=== PATIENT | male | born 1935 | race Caucasian/White ===

== ENCOUNTER 2019-05-11 11:04 | Outpatient (RCR) | payer MEDICARE, MEDICAID, SELFPAY ==
[2019-05-11 11:48] LABS: Basophils # 0.1 10^3/uL (0.0-0.1); Basophils % 0.8 %; Eosinophils # 0.4 10^3/uL (0.0-0.8); Eosinophils % 4.9 %; Hematocrit 43.6 % (42.0-52.0); Hemoglobin 14.4 g/dL (11.7-16.6); Lymphocytes # 1.4 10^3/uL (0.8-4.8); Lymphocytes % 17.8 %; Mean Corpuscular Hemoglobin 30.3 pg (28.0-34.0); Mean Corpuscular Volume 91.8 fL (80-94); Mean Platelet Volume 9.7 fL (7.4-10.4); Monocytes # 0.7 10^3/uL (0.2-0.9); Monocytes % 8.6 %; Neutrophils # 5.2 10^3/uL (1.8-7.7); Neutrophils % 67.6 %; Nucleated Red Blood Cells % 0 %; Platelet Count 215 10^3/cmm (130-400); Red Blood Count 4.75 10^6/uL (4.1-5.3); Red Cell Distribution Width 14.6 % (12.1-15.1); White Blood Count 7.7 10^3/uL (4.0-10.0)
[2019-05-11 12:00] LABS: Anion Gap 14.8 (5-19); Blood Urea Nitrogen 14 mg/dL (8-23); Calcium 9.4 mg/Dl (8.8-10.2); Carbon Dioxide 26 mmol/L (22-29); Chloride 104 mmol/L (98-107); Glucose 121 mg/dL (74-106); Potassium 4.8 mmol/L (3.5-5.1); Sodium 140 mmol/L (136-145)
== END 2019-05-25 23:59 | disposition home or self-care (01) ==
LOC: LAB 11:04
PROVIDERS: Family Provider Family Medicine; PCP Family Medicine; Visit Provider Family Medicine
DX: D50.9 Iron deficiency anemia, unspecified (principal); J44.9 Chronic obstructive pulmonary disease, unspecified; E78.41 Elevated Lipoprotein(a); I25.10 Atherosclerotic heart disease of native coronary artery without angina pectoris; D62 Acute posthemorrhagic anemia
CPT/HCPCS: 80048; 85025

== ENCOUNTER → 2019-10-04 11:55 | Outpatient (BNVA) | payer MEDICARE, MEDICAID, SELFPAY | PROVIDERS: PCP Family Medicine; Visit Provider Internal Medicine Cardiovascular Disease | DX: I73.9 Peripheral vascular disease, unspecified (principal) | CPT/HCPCS: 80048; 85025; 87635 ==

== ENCOUNTER 2019-10-08 07:30 | Observation (INO) | payer MEDICARE, MEDICAID, SELFPAY ==
[2019-10-08] VITALS (18 sets, daily range): BP systolic 135–171; BP diastolic 61–79; PULSE 52–90; RESP 10–18; TEMP 36.6–37.1; O2SAT 92–96; BMI 24.7
--- NOTE | 2019-10-08 07:00 | XACV_ITS ---
Ht: 168 cm Wt: 69 kg BSA: 1.81 m2 Any Known Allergies: Other Gender: Male : 1935 Exam Type: Invasive Peripheral Vascular Procedure(s): Procedure Description: Peripheral Cath Diagnostic Procedure Procedure Description: Lower extremities' angiography Exam Priority: Routine Conclusions Peripheral Procedure Description: Lifestyle limiting claudication of the both legs #1 Abdominal aorta: Luminal irregularities #2 Right and left renal arteries not well visualized #3 Right common iliac artery has luminal irregularities #4 Left common iliac artery has luminal irregularities #5 Left and right internal iliac artery has luminal irregularity #6 Left common femoral artery has luminal irregularity#7 Left and right profunda femoral artery has luminal irregularity#8 Proximal left SFA has patent previously placed stent with proximal 50% instent restenosis#9 Right proximal to mid SFA has diffuse severe disease with scant and slow blood flow,Right popliteal, tibioperoneal trunk has luminal irregularities. #10 Left tibioperoneal trunk has luminal irregularities, left anterior tibial artery has chronic occlusion of the proximal segment while two-vessel runoff with posterior tibial and peroneal artery has luminal irregularities. #11 Right tibioperoneal trunk with three-vessel runoff noted in the right leg including anterior posterior tibial and peroneal artery which showed luminal irregularities. Recommendations Patient will brought in back for right SFA intervention through left common femoral artery approach for lifestyle limiting claudication. For left SFA at this point no intervention required continue medical treatment. 1-Return to inpatient for close monitoring and routine cath care 2-Risk factor modification for secondary prevention 4-Statin and aspirin 81 mg life--long, if tolerated 5-Continue optimal medical management. 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 Sepulveda in four weeks and your primary care in 10 days. Access Site Site: Right Femoral artery Sheath Size: 6 Fr Hemost... Method: Manual Compression Hemost... Success: Successful Procedure Details Findings Procedure Consent Obtained. Pre-Procedure Time Out. Identified patient by full name and date of as verbalized by the patient/guarantor. Does the consent match the physician's order: Yes. Accurate & Complete Informed Consent: Yes. Inpatient/Outpatient History & Physical on Chart: Yes. If H&P is completed, is and addenduem needed: N/A; If yes, is the addendum complete: N/A. Visualize and Verify Site with Patient/Guarantor: N/A. Relevant Radiology Images available: Yes. Pre-op teaching completed and patient verbalized understanding. The risks, benefits, and alternatives of sedation and/or procedure were discussed by physician. The patient agrees to continue. Procedure started. Current diagnosis: PAD. PERRLA. Strong, equal hand beef trimmer bilaterally. Lungs clear x 5 lobes. IV Site on Arrival: 20 gauge in the right forearm. IV Fluids: 0.9% NaCl at KVO. 0 mL infused prior to tanbark laborer. Pre Procedural Pulses: bilateral dorsalis pedis was Doppled. Pre Procedural Pulses: left posterior tibial was 2+. Pre Procedural Pulses: right posterior tibial was Doppled. Pre Procedural Pulses: bilateral radial was 3+. Oxygen started at 2liters/min via nasal canula. bilateral groins was prepped with chloroprep then draped in the usual sterile fashion. Physician notified. Equipment: 6F - Femoral. Cardiac Cath Pack. ACIST Manifold Kit Model BT 2000. Heparinized Saline (2 units/mL), 1000 mL bag. Kit, Micropuncture. Baseline sample Acquired. HR: 59 BPM. Physician arrived. Physician scrubbed in. Time out performed with cath team. Lidocaine 1% infiltrated to the right groin. Arterial access obtained with micropuncture set. hand injection through dilator. A 5FrFr UF catheter in over wire. Abdominal aortogram performed in AP @ 10 mL/sec for a total of 30 mL. inserting the glidewire removing the UF catheter. inserting the RIM. wire out. left leg runoff 10ml/sec for a total of 30ml x2. catheter out. right leg runoff 10ml/sec for a total of 30ml. A Manual Compression was successful obtaining hemostatsis at the Right Femoral artery insertion site. Sheath(s) removed and manual pressure held until hemostasis was achieved. Sterile 4x4 and Op-site applied to the puncture site. No oozing or hematoma noted. Post sheath removal instructions were given and the patient verbalized understanding. Post Procedure: Pulses reassessed and unchanged. PERRLA. Strong, equal hand beef trimmer bilaterally. No VTE prophylaxis required. Medication's Wasted: Lidocaine 1% = 10 mL. Medication's Wasted: Heparin = 4000 units. Total IV fluids: 56.2 mL. Fluoro: 2:09. Contrast type used: Visipaque 320 mgI/mL, 500 mL bottle. [id number]. Complications: none. Estimated blood loss: 5mL-10mL. Procedure completed. Patient transferred by bed to 1st floor. Post-op diagnosis: patent stent on left severe pad on right sfa. Vital chart was stopped. Procedure Medications Start: 9:34 AM Stop: 9:34 AM Medication: Versed Amount: 1 mg Route: I.V. Start: 9:34 AM Stop: 9:34 AM Medication: Fentanyl Amount: 50 mcg Route: I.V. Start: 9:57 AM Stop: 9:57 AM Medication: Versed Amount: 1 mg Route: I.V. Start: 9:57 AM Stop: 9:57 AM Medication: Fentanyl Amount: 50 mcg Route: I.V. I, the attending physician, have reviewed and verified all procedure medications. Yes, all medications given per verbal order History/Risk Factors Hypertension: Yes Dyslipidemia: No Peripheral Arterial Disease (PAD): Yes Myocardial Infarction (CT): No Obesity: No Renal Disease: No Tobacco Use: Current/Recent(w/in 1 year) Prior Interventions PCI: No CABG: No Valve Surgery: No Report Signatures Finalized by:Emilia Sepulveda MD on 10/14/2019 3:16:08 PM
[2019-10-08] MEDS: diphenhydrAMINE 50 mg Capsule PO (07:34)
--- NOTE | 2019-10-08 08:31 | PC.RESP ---
Smoking Cessation packet sent to patient with a schedule of classes.
--- NOTE | 2019-10-08 09:24 | W.PM.OPSUD ---
Surgery/Procedure H&P Update DATE OF PROCEDURE: October 08, 2019 DATE H&P PERFORMED: 10/08/19 H&P UPDATE INFORMATION: I have examined patient prior to procedure PREOP DIAGNOSIS: Lifestyle limiting claudication, failed conservative management, failed cilostazol PLANNED PROCEDURE: Operation Date: 10/08/19 08:30 Proposed Procedures p Peripheral Diagnostic(Not Applicable) - Emilia Sepulveda MD PATIENT REASSESSED PRIOR TO SEDATION, WITH NO CHANGE NOTED: Yes PHYSICAL EXAM: alert, oriented x 3, clear to auscultation bilaterally and regular rate & rhythm OTHER PERTINENT EXAM FINDINGS: Patient has underlying dementia but he is oriented of time and space. He is oriented of symptoms. AIRWAY EVAL/ANESTHESIA PLAN: normal airway, ASA II, Risks, benefits & alternatives of sedation and/or procedure discussed and Patient agrees to continue as planned
--- NOTE | 2019-10-08 09:26 | P.HP_ITS ---
Providers/Chief Complaint Admitting Physician: Emilia Sepulveda MD Primary Care Provider: Sea Baxter Chief Complaint: pvd History of Present Illness Modesto Calixto is a 84 year old male past medical history significant for severe peripheral vascular disease, COPD, history of balloon angioplasty and stent placement in the left SFA and history of balloon angioplasty of the right SFA in 2018 for the last few months has been struggling with lifestyle limiting claudication as he cannot walk more than 50 yards he has to sit down to get over the tightness and the pain. Cilostazol was tried and patient was encouraged to walk more however despite of optimization of medicine he is not able to do much. It is the reason today he is brought in for peripheral angiogram. According to the patient it does not matter both legs hurt the same. We will therefore proceed from the right common femoral for the angiogram and most likely we will proceed with intervention of the left SFA or iliac if needed. Further plan will be advised as per progress the patient. Patient has been discussed in detail risk benefit and alternative for the procedure. He understand the risk of drug-coated balloon and warning regarding drug-coated balloon from FDA for increased mortality in that subgroup. If needed he would like to proceed with it. Medications/Allergies Home Medications Medication Instructions Recorded Confirmed Last Taken Type amlodipine 2.5 mg tablet 2.5 mg PO DAILY 08/01/19 10/08/19 10/08/19 06:00 His tory cilostazol 50 mg tablet 50 mg PO BID 90 Days #180 tab 08/01/19 10/08/19 10/08/19 06:00 Rx clopidogrel 75 mg tablet 75 mg PO BEDTIME 08/01/19 10/08/19 10/07/19 19:00 History donepezil 10 mg tablet 5 mg PO BEDTIME 08/01/19 10/08/19 10/07/19 20:00 History ferrous sulfate 325 mg (65 mg 325 mg PO .every other day tab 08/01/19 10/08/19 10/07/19 06:00 History iron) tablet fluticasone furoate 100 1 inh INHALATION BEDTIME 08/01/19 10/08/19 10/07/19 19:00 History mcg-vilanterol 25 mcg/dose inhalation powder gabapentin 400 mg capsule 400 mg PO TID 08/01/19 10/08/19 10/08/19 06:00 History pantoprazole 40 mg tablet,delayed 40 mg PO DAILY 08/01/19 10/08/19 10/08/19 06:00 History release psyllium husk 3.4 gram/5.4 gram 1 tbsp PO DAILY 08/01/19 10/05/19 Unknown History oral powder rosuvastatin 20 mg tablet 20 mg PO BEDTIME 08/01/19 10/08/19 10/07/19 19:00 History sertraline 50 mg tablet 50 mg PO DAILY 08/01/19 10/08/19 10/08/19 06:00 History bisacodyl 10 mg ME DAILY PRN 10/05/19 10/05/19 Unknown History famotidine 20 mg PO BID PRN 10/05/19 10/05/19 Unknown History ipratropium bromide 2 spray INTRANASAL DAILY PRN 10/05/19 10/05/19 Unknown History lactulose 15 ml PO DAILY PRN 10/05/19 10/05/19 Unknown History tizanidine 2 mg PO BID PRN 10/05/19 10/05/19 Unknown History tramadol 50 mg PO Q8H PRN 10/05/19 10/05/19 Unknown History acetaminophen 500 mg PO Q6H PRN 10/08/19 10/08/19 Unknown History fluticasone furoate-vilanterol 1 inh INHALATION DAILY 10/08/19 10/08/19 10/08/19 06:00 History [Breo Ellipta] magnesium hydroxide [Milk of 400 mg PO DAILY PRN 10/08/19 10/08/19 Unknown History Magnesia] memantine [Namenda] 10 mg PO BID 10/08/19 10/08/19 10/08/19 06:00 History mirtazapine [Remeron] 15 mg PO BEDTIME 10/08/19 10/08/19 10/07/19 19:00 History polyethylene glycol 3350 17 g PO DAILY PRN 10/08/19 10/08/19 Unknown History Allergies Allergy/AdvReac Type Severity Reaction Status Date / Time amoxicillin Allergy Unknown Unknown Verified 10/08/19 07:58 clavulanic acid Allergy Unknown Unknown Verified 10/08/19 07:58 [From Augmentin] sulfamethoxazole Allergy Unknown Unknown Verified 10/08/19 07:58 [From Bactrim] trimethoprim Allergy Unknown Unknown Verified 10/08/19 07:58 PFSH Acute PFSH: Medical History (Updated 10/08/19 @ 09:29 by Emilia Sepulveda MD) ASHD (arteriosclerotic heart disease) Claudication in peripheral vascular disease COPD (chronic obstructive pulmonary disease) HTN (hypertension) Family History Other Diabetes Heart disease Stroke Social History Smoking and tobacco status: current every day smoker cigarettes Vitals/I&O/Wt Last Vital Signs Temp 97.9 F 10/08/19 07:52 Pulse 76 10/08/19 07:52 Resp 18 10/08/19 07:52 BP 140/77 10/08/19 07:52 Pulse Ox 96 10/08/19 07:52 Weight last 48 hrs Weight 153 lb Physical Exam Narrative: EXAM NARRATIVE: GENERAL: Patient is alert, awake and oriented x3. NECK: No jugular vein distension. HEENT: No cyanosis. No icterus. No pallor. HEART: Regular S1 and S2. No murmur, rub or gallop. LUNGS: Clear to auscultate bilaterally. ABDOMEN: Soft, nontender and nondistended. Positive bowel sounds. No guarding, rebound or tenderness. CENTRAL NERVOUS SYSTEM: Grossly nonfocal. EXTREMITIES: Lower extremities pelvis looking normal temperature though Const: COMMON NORMALS: alert Resp: COMMON NORMALS: clear to auscultation bilaterally AUSCULTATION: clear to auscultation bilaterally Neuro: SENSORIUM/ORIENTATION: Yes alert A&P Assessment and plan (1) Claudication in peripheral vascular disease: Patient has lifestyle limiting claudication he has failed conservative management including walking and cilostazol. It is the reason he has brought in today for peripheral angiogram. He has history of prior intervention on both legs. Since he does not have a preference and states that his both legs are worse we will proceed from right groin approach to perform peripheral angiogram and intervention of left leg if indicated. Status: Acute (2) ASHD (arteriosclerotic heart disease): Stable denies any complaint. Status: Acute (3) HTN (hypertension): Well-controlled continue medicine Status: Acute Qualifiers: Hypertension type: essential hypertension Qualified Code(s): I10 - Essential (primary) hypertension Attestations Medical Necessity Statement*: I am expecting his stay not to cross more than 1 midnight. 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
[2019-10-08] MEDS: pantoprazole DR 40 mg Tablet PO (11:56)
[2019-10-08] MEDS: ferrous sulfate EC 325 mg Tablet PO (11:56)
[2019-10-08] MEDS: gabapentin 400 mg Capsule PO (15:39)
--- NOTE | 2019-10-08 17:28 | PM.DCS ---
Discharge Providers Date of Admission: 10/08/19 07:30 Date of Discharge: October 08, 2019 Attending Provider at Admission: Emilia Sepulveda MD Attending Provider at Discharge: Emilia Sepulveda MD Primary Care Provider: Sea Baxter Diagnoses at Discharge Discharge Diagnosis (1) Claudication in peripheral vascular disease: Status: Acute (2) ASHD (arteriosclerotic heart disease): Status: Acute (3) HTN (hypertension): Status: Acute Qualifiers: Hypertension type: essential hypertension Qualified Code(s): I10 - Essential (primary) hypertension Reason for Visit Reason for Visit: pvd Hospital Course Hospital Course: Patient underwent peripheral angiogram for lifestyle limiting claudication. He has history of prior stents in the left SFA while right SFA had angioplasty without stent placement in the past. Today peripheral angiogram revealed patent prior left SFA stents without any significant stenosis in the left leg arterial system however right SFA appeared to be chronically occluded requires intervention. He is completed bedrest and is being discharged home. Right groin wound looks good. Patient will be brought back for right SFA intervention in 1 week. Physical Exam Narrative: EXAM NARRATIVE: GENERAL: Patient is alert, awake and oriented x3. Patient has underlying dementia. NECK: No jugular vein distension. HEENT: No cyanosis. No icterus. No pallor. HEART: Regular S1 and S2. No murmur, rub or gallop. LUNGS: Clear to auscultate bilaterally. ABDOMEN: Soft, nontender and nondistended. Positive bowel sounds. No guarding, rebound or tenderness. CENTRAL NERVOUS SYSTEM: Grossly nonfocal. EXTREMITIES: Lower extremities without edema, right foot nonpalpable anterior posterior tibial pulse. Discharge Data Data Completed and Pending: Pending at discharge Category Date Time Status SAFETY ATTENDANT request for service Routin e Exams 10/08/19 07:00 Taken Vitals: Last Vital Signs Temp 98.7 F 10/08/19 12:00 Pulse 90 10/08/19 17:00 Resp 14 10/08/19 17:00 BP 171/79 10/08/19 17:00 Pulse Ox 93 10/08/19 16:00 Discharge Plan Discharge Patient Disposition: Home, Self-Care Condition: Stable Prescriptions: Continued ferrous sulfate 325 mg (65 mg iron) tablet 325 mg PO .every other day RF: 0 clopidogrel 75 mg tablet 75 mg PO BEDTIME RF: 0 sertraline 50 mg tablet 50 mg PO DAILY RF: 0 pantoprazole 40 mg tablet,delayed release (DR/EC) 40 mg PO DAILY RF: 0 amlodipine 2.5 mg tablet 2.5 mg PO DAILY RF: 0 rosuvastatin 20 mg tablet 20 mg PO BEDTIME RF: 0 Metamucil 3.4 gram/5.4 gram powder 1 tbsp PO DAILY RF: 0 gabapentin 400 mg capsule 400 mg PO TID RF: 0 Breo Ellipta 100-25 mcg/dose blister with device 1 inh INHALATION BEDTIME RF: 0 donepezil 10 mg tablet 5 mg PO BEDTIME RF: 0 cilostazol 50 mg tablet 50 mg PO BID 90 Days Qty: 180 RF: 3 tizanidine 2 mg Tablet 2 mg PO BID PRN (Reason: Spasms) RF: 0 tramadol 50 mg Tablet 50 mg PO Q8H PRN (Reason: Pain) RF: 0 famotidine 20 mg Tablet 20 mg PO BID PRN (Reason: Dyspepsia) RF: 0 bisacodyl 10 mg Suppository 10 mg MS DAILY PRN (Reason: Constipation) RF: 0 ipratropium bromide 0.03 % [place],Non-Aerosol 2 spray INTRANASAL DAILY PRN (Reason: Shortness Of Breath) RF: 0 lactulose 10 gram/15 mL Solution 15 ml PO DAILY PRN (Reason: Constipation) RF: 0 polyethylene glycol 3350 17 gram Powder In Packet 17 g PO DAILY PRN (Reason: Constipation) RF: 0 Milk of Magnesia 400 mg/5 mL Suspension 400 mg PO DAILY PRN (Reason: CONSTIPATION) RF: 0 Remeron 15 mg Tablet 15 mg PO BEDTIME RF: 0 acetaminophen 500 mg Capsule 500 mg PO Q6H PRN (Reason: Pain) RF: 0 Namenda 10 mg Tablet 10 mg PO BID RF: 0 Breo Ellipta 100-25 mcg/dose Blister With Device 1 inh INHALATION DAILY RF: 0 Discharge Orders: Discharge Order (Routine); Ordered 10/08/19 Ordered By: Emilia Sepulveda Referrals: Emilia Sepulveda MD [Physician] - ([facility] [place] [facility] will be calling to set up a cardiology followup. If you do not hear from them by Tomorrow afternoon, please call them at [phone]) Discharge Diet: Cardiac Discharge Activity: Increase activity as tolerated Patient Instructions: Peripheral Vascular Angioplasty (DC) Activity Restrictions/Additional Instructions: Patient underwent peripheral angiogram today without any intervention. Left lower extremity vessels did not show any blockage. He will be brought back for right leg which had severe peripheral vascular disease as right SFA appeared to be chronically 99% blocked in mid to distal segment which reconstitute at the distal end. Please schedule patient for peripheral angiogram for right leg in 1 week. 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
== END 2019-10-08 17:40 | disposition home or self-care (01) ==
LOC: CSU 07:31
PROVIDERS: Admitting Provider Internal Medicine Cardiovascular Disease; PCP Family Medicine; Visit Provider Internal Medicine Cardiovascular Disease
DX: I73.9 Peripheral vascular disease, unspecified (principal); I25.10 Atherosclerotic heart disease of native coronary artery without angina pectoris; I10 Essential (primary) hypertension; F17.210 Nicotine dependence, cigarettes, uncomplicated; Z82.49 Family history of ischemic heart disease and other diseases of the circulatory system; Z83.3 Family history of diabetes mellitus
CPT/HCPCS: 12345; 36415; 75625; 75716; C1769; C1887; C1894; G0378; J1644; J2001; J2250; J3010; J7030; Q0163; Q9967

== ENCOUNTER → 2019-11-05 11:50 | Outpatient (BNVA) | payer MEDICARE, MEDICAID, SELFPAY | PROVIDERS: PCP Family Medicine; Visit Provider Internal Medicine Cardiovascular Disease | DX: I73.9 Peripheral vascular disease, unspecified (principal) | CPT/HCPCS: 80048; 85025; 87635 ==

== ENCOUNTER 2019-11-08 10:33 | Observation (INO) | payer MEDICARE, MEDICAID, SELFPAY ==
[2019-11-07 10:57] VITALS: BMI 24.7
[2019-11-08] VITALS (46 sets, daily range): BP systolic 98–149; BP diastolic 52–84; PULSE 52–90; RESP 12–23; TEMP 36.2–36.6; O2SAT 89–98
--- NOTE | 2019-11-08 08:15 | SUR.PREOP ---
H/P Dr Sepulveda notified of h/p being ood. States he will be in to complete it! Patient is CPRU Pending update.
--- NOTE | 2019-11-08 08:16 | XACV_ITS ---
Wt: 69 kg BSA: 1.81 m2 Any Known Allergies: Other Gender: Male : 1935 Exam Type: Invasive Peripheral Vascular Procedure(s): Procedure Description: Peripheral Cath Diagnostic Procedure Procedure Description: Peripheral vascular Intervention Procedure Description: PV Balloon Procedure Description: PV Atherectomy Exam Priority: Routine Lower Extremity Interventional Findings After crossing with the Glidewire using seeker catheter Viper wire was exchanged. 2.0 bur of CSI atherectomy was used to perform atherectomy throughout the right SFA from proximal to distal segment. Multiple balloon angioplasty using [id number] followed by drug-coated balloon was performed. Please see the inventory for details of balloon and inflation time. Excellent angiographic result in the right SFA was achieved. Good three-vessel runoff was noted below the right knee all the way to the foot. Conclusions Peripheral Procedure Description: Life style limiting claudication, Zeus grade V :Lloyd stage . 1-Left common femoral artery was used to approach the right superficial femoral which was chronically totally occluded from proximal to distal segment reconstitute at the proximal segment of the popliteal artery through collaterals.2-right popliteal artery has luminal irregularity, right tibioperoneal trunk has luminal irregularity right anterior tibial artery has moderate lesion right posterior tibial artery has luminal irregularity right peroneal artery has luminal irregularity with three-vessel runoff noted. Recommendations 1-Return to inpatient for close monitoring and routine cath care 2-Risk factor modification for secondary prevention 3-Statin and aspirin 81 mg life--long, if tolerated 4-Patient was pre-loaded with 600 mg of Plavix, continue Plavix 75mg p.o. daily for three months 5-Continue optimal medical management 6-Follow up with Dr. Sepulveda in four weeks and your primary care in 10 days. Access Site Site: Left Femoral artery Sheath Size: 6 Fr Hemost... Method: Suture Hemost... Success: Successful Site: Left Femoral artery Sheath Size: 6 Fr Hemost... Success: Unsuccessful Procedure Details Findings Procedure Consent Obtained. Admit Source: Out Patient. Pre-Procedure Time Out. Identified patient by full name and date of as verbalized by the patient/guarantor. Does the consent match the physician's order: Yes. Accurate & Complete Informed Consent: Yes. Inpatient/Outpatient History & Physical on Chart: Yes. If H&P is completed, is and addenduem needed: Yes; If yes, is the addendum complete: Yes. Visualize and Verify Site with Patient/Guarantor: N/A. Relevant Radiology Images available: Yes. Pre-op teaching completed and patient verbalized understanding. The risks, benefits, and alternatives of sedation and/or procedure were discussed by physician. The patient agrees to continue. Procedure started. Correct patient, site and procedure confirmed by cath team. PERRLA. Strong, equal hand delivery rep bilaterally. Lungs clear x 5 lobes. IV Site on Arrival: 18 gauge in the right anticubital. IV Fluids: 0.9% NaCl at KVO. 0 mL infused prior to lab intern. Pre Procedural Pulses: bilateral dorsalis pedis was Absent. Pre Procedural Pulses: right posterior tibial was Doppled. Pre Procedural Pulses: left posterior tibial was 3+. Pre Procedural Pulses: bilateral radial was 2+. Oxygen started at 2liters/min via nasal canula. bilateral groins was prepped with chloroprep then draped in the usual sterile fashion. Physician notified. Baseline sample Acquired. HR: 70 BPM. Physician arrived. Physician scrubbed in. Time out performed with cath team. Tried calling son, no answer. Lidocaine 1% infiltrated to the left groin. Arterial access obtained with micropuncture set. A 5FrFr RIM catheter in over wire. Catheter out. Sheath upsized to a 6 Fr. right leg runoff 10mL/sec for a total of 20mL. Trailblazer catheter inserted over the wire. wire out. hand injection performed. viper wire inserted. seeker out over the Viper wire. loading monica. Athroectomy performed Right SFA. advancing monica. device out. Trailblazer catheter inserted over the viper wire. viper wire out. Side port of sheath attached to Normal Saline flush at KVO to maintain patency. son updated. Inflation number : 1 A AB [place] 35 WARPING MILL OPERATOR Catheter [id number] was prepped and advanced across the Mid SFA , then inflated to 10 MYLES for 2:04 seconds. Inflation number: 1 The AB [place] 35 WARPING MILL OPERATOR Catheter [id number] was reinflated across the Proximal Superficial Femoral, Left, to 10 MYLES for 2:02 seconds. Balloon out. Inflation number : 1 A [place] 035 [id number] was prepped and advanced across the Mid Superficial Femoral, Left , then inflated to 10 MYLES for 1:04 seconds. Inflation number: 2 The [place] 035 was reinflated across the Mid Superficial Femoral, Left, to 10 MYLES for 1:07 seconds. Inflation number: 3 The [place] 035 was reinflated across the Mid Superficial Femoral, Left, to 12 MYLES for 2:03 seconds. checking results. right leg runoff performed. 10mL/sec for a total of 20mL. exchanging sheaths back. Sheath(s) sutured into position with 2-0 silk and sterile 4x4's and Op-site applied over the site. No oozing or signs and symptoms of hematoma noted. Arterial sheath flushed and connected to tranducer and pressure bag with heparinized saline. Post Procedure: Pulses reassessed and unchanged. PERRLA. Strong, equal hand delivery rep bilaterally. No VTE prophylaxis required. Medication's Wasted: Verapamil = 4 mg. Medication's Wasted: Nitro = 49.4 mg. Medication's Wasted: Other = fentanyl 25 mg. Medication's Wasted: Lidocaine 1% = 10 mL. Total IV fluids: 200 mL. Contrast type used: Visipaque 320 mgI/mL, 500 mL bottle. Contrast Material : Visipaque 67 ml. Post-op diagnosis: severe SCI atherectomy/WARPING MILL OPERATOR. Complications: none. Estimated blood loss: 5mL-10mL. Procedure completed. Patient transferred by bed to 1st floor. A Suture was successful obtaining hemostatsis at the Left Femoral artery insertion site. Vital chart was stopped. Procedure Medications Start: 9:08 AM Stop: 9:08 AM Medication: Versed Amount: 1 mg Route: I.V. Start: 9:09 AM Stop: 9:09 AM Medication: Fentanyl Amount: 50 mcg Route: I.V. Start: 9:25 AM Stop: 9:25 AM Medication: Versed Amount: 1 mg Route: I.V. Start: 9:25 AM Stop: 9:25 AM Medication: Heparin Amount: 4000 units Route: I.V. Start: 9:33 AM Stop: 9:33 AM Medication: Fentanyl Amount: 25 mcg Route: I.V. I, the attending physician, have reviewed and verified all procedure medications. Yes, all medications given per verbal order History/Risk Factors Hypertension: Yes Dyslipidemia: No Peripheral Arterial Disease (PAD): Yes Myocardial Infarction (NE): No Obesity: No Renal Disease: No Tobacco Use: Current/Recent(w/in 1 year) Prior Interventions PCI: No CABG: No Valve Surgery: No Report Signatures Finalized by:Emilia Sepulveda MD on 11/22/2019 2:09:43 AM
[2019-11-08] MEDS: diphenhydrAMINE 50 mg Capsule PO (08:20)
--- NOTE | 2019-11-08 08:53 | W.PM.OPSUD ---
Surgery/Procedure H&P Update DATE OF PROCEDURE: November 08, 2019 DATE H&P PERFORMED: 11/08/19 H&P UPDATE INFORMATION: I have examined patient prior to procedure, No changes to prior documentation and Changes to prior documentation as noted here PREOP DIAGNOSIS: Lifestyle limiting claudication, failed conservative management, failed cilostazol PLANNED PROCEDURE: Operation Date: 11/08/19 08:30 Proposed Procedures p Right peripheral angiogram(Right) - Emilia Sepulveda MD PATIENT REASSESSED PRIOR TO SEDATION, WITH NO CHANGE NOTED: Yes PHYSICAL EXAM: alert, oriented x 3 and clear to auscultation bilaterally AIRWAY EVAL/ANESTHESIA PLAN: ASA II, Risks, benefits & alternatives of sedation and/or procedure discussed and Patient agrees to continue as planned
--- NOTE | 2019-11-08 08:54 | PM.HP ---
Providers/Chief Complaint Primary Care Provider: Sea Baxter Chief Complaint: peripheral angiogram History of Present Illness Modesto Calixto is a 84 year old male past medical history significant for severe peripheral vascular disease, COPD, history of balloon angioplasty and stent placement in the left SFA and history of balloon angioplasty of the right SFA in 2018 for the last few months has been struggling with lifestyle limiting claudication as he cannot walk more than 50 yards he has to sit down to get over the tightness and the pain. Cilostazol was tried and patient was encouraged to walk more however despite of optimization of medicine he is not able to do much. Patient underwent peripheral angiogram nearly 1 month ago from the right to left as at that time patient was not able to differentiate which leg is hurting him more he was noted to have patent previously placed left SFA stent and no other significant lesion that can cause him claudication was noted however during the same angiogram it was learned that patient has highly significant stenosis of right SFA therefore it was decided that patient will brought back from left groin approach for right SFA intervention. He continues to have tightness and pressure with inability to walk more than 100 feet. We will therefore proceed with peripheral angiogram now. Patient denies any more change in the health. Medications/Allergies Home Medications Medication Instructions Recorded Confirmed Last Taken Type amlodipine 2.5 mg tablet 2.5 mg PO DAILY 08/01/19 11/08/19 11/08/19 06:00 History cilostazol 50 mg tablet 50 mg PO BID 90 Days #180 tab 08/01/19 11/08/19 11/08/19 06:00 Rx clopidogrel 75 mg tablet 75 mg PO BEDTIME 08/01/19 11/08/19 11/07/19 19:00 History donepezil 10 mg tablet 5 mg PO BEDTIME 08/01/19 11/08/19 11/07/19 20:00 History ferrous sulfate 325 mg (65 mg 325 mg PO .every other day tab 08/01/19 11/08/19 11/08/19 06:00 History iron) tablet fluticasone furoate 100 1 inh INHALATION BEDTIME 08/01/19 11/08/19 11/07/19 19:00 History mcg-vilanterol 25 mcg/dose inhalation powder gabapentin 400 mg capsule 400 mg PO TID 08/01/19 11/08/19 11/08/19 06:00 History pantoprazole 40 mg tablet,delayed 40 mg PO DAILY 08/01/19 11/08/19 11/08/19 06:00 History release rosuvastatin 20 mg tablet 20 mg PO BEDTIME 08/01/19 11/08/19 11/07/19 20:00 History sertraline 50 mg tablet 50 mg PO DAILY 08/01/19 11/08/19 11/08/19 06:00 History bisacodyl 10 mg HI DAILY PRN 10/05/19 11/07/19 Unknown History famotidine 20 mg PO BID PRN 10/05/19 11/07/19 Unknown History ipratropium bromide 2 spray INTRANASAL DAILY PRN 10/05/19 11/07/19 Unknown History lactulose 15 ml PO DAILY PRN 10/05/19 11/07/19 Unknown History Breo Ellipta 1 inh INHALATION DAILY 10/08/19 11/08/19 11/08/19 06:00 History acetaminophen 500 mg PO Q6H PRN 10/08/19 11/07/19 Unknown History magnesium hydroxide [Milk of 400 mg PO DAILY PRN 10/08/19 11/07/19 Unknown History Magnesia] memantine [Namenda] 10 mg PO BID 10/08/19 11/08/19 11/08/19 06:00 History mirtazapine [Remeron] 15 mg PO BEDTIME 10/08/19 11/08/19 11/07/19 19:00 History polyethylene glycol 3350 17 g PO DAILY PRN 10/08/19 11/07/19 Unknown History hydroxyzine HCl 25 mg PO TID PRN 11/08/19 11/08/19 Unknown History tizanidine 2 mg PO BID PRN 11/08/19 11/08/19 Unknown History tramadol 50 mg PO TID PRN 11/08/19 11/08/19 Unknown History Allergies Allergy/AdvReac Type Severity Reaction Status Date / Time amoxicillin Allergy Unknown Unknown Verified 11/08/19 08:20 clavulanic acid Allergy Unknown Unknown Verified 11/08/19 08:20 [From Augmentin] sulfamethoxazole Allergy Unknown Unknown Verified 11/08/19 08:20 [From Bactrim] trimethoprim Allergy Unknown Unknown Verified 11/08/19 08:20 PFSH Acute PFSH: Medical History ASHD (arteriosclerotic heart disease) Claudication in peripheral vascular disease COPD (chronic obstructive pulmonary disease) HTN (hypertension) Family History Other Diabetes Heart disease Stroke Social History Smoking and tobacco status: current every day smoker cigarettes Vitals/I&O/Wt Last Vital Signs Temp 97.2 F L 11/08/19 08:23 Pulse 90 11/08/19 08:23 Resp 17 11/08/19 08:23 BP 98/60 11/08/19 08:23 Pulse Ox 94 11/08/19 08:23 Weight last 48 hrs Weight 153 lb Physical Exam Narrative: EXAM NARRATIVE: GENERAL: Patient is alert, awake and oriented x3. NECK: No jugular vein distension. HEENT: No cyanosis. No icterus. No pallor. HEART: Regular S1 and S2. No murmur, rub or gallop. LUNGS: Clear to auscultate bilaterally. ABDOMEN: Soft, nontender and nondistended. Positive bowel sounds. No guarding, rebound or tenderness. CENTRAL NERVOUS SYSTEM: Grossly nonfocal. EXTREMITIES: Lower extremities without edema bilaterally. Pulses not palpable in the lower extremities, both dorsalis pedis and posterior tibial. Const: COMMON NORMALS: alert Resp: COMMON NORMALS: clear to auscultation bilaterally AUSCULTATION: clear to auscultation bilaterally Neuro: SENSORIUM/ORIENTATION: Yes alert Data : 11/09/19 04:15 11/09/19 04:15 A&P Assessment and plan (1) Claudication in peripheral vascular disease: Lifestyle limiting claudication and failure of conservative management patient has been brought back for right leg. We will proceed with peripheral angiogram and intervention of SFA on the right side if indicated. Patient has been explained all risk benefit and alternative for the procedure. He understand the risk and warning of drug-coated balloon application from FDA. He understand increase mortality in drug-coated balloon cohort as issued by the FDA. He would like to proceed with it. Status: Acute (2) ASHD (arteriosclerotic heart disease): Stable. Continue current regimen Status: Acute Attestations Medical Necessity Statement*: I am not expecting his stay to cross more than 1 midnight. 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
[2019-11-08] MEDS: sodium chloride 0.9% 1,000 ML 100 ML IV (10:30)
--- NOTE | 2019-11-08 10:50 | PC.NURSE ---
Patient arrived to floor from [facility] at 1027. 2 nurse verification of sheath site, asymptomatic. Neurovascular check WNL. Patient resting, pain 0/10. See physical assessment.
--- NOTE | 2019-11-08 10:54 | PC.NURSE ---
Physician notification No post cath fluids ordered. Dr. Sepulveda gave telephone order for NS at 100 ml/hr for a total of 1L, RBVO. Physician gave nurse order to check PTT in hour then pull sheath if PTT <45.
[2019-11-08 14:11] LABS: Partial Thromboplastin Time 34.5 SECONDS (23.9-36.7)
--- NOTE | 2019-11-08 15:45 | PC.NURSE ---
Sheath pull Sheath pulled at 1315 per protocal. Direct pressure held for 20 minutes until hemostasis was achieved. Incision asymptomatic, no hematoma formation noted. VS WNL, see flowchart. Dressing applied, CDI. Patient tolerated well.
[2019-11-08] MEDS: gabapentin 400 mg Capsule PO ×2 (15:46→20:33)
--- NOTE | 2019-11-08 17:25 | PC.NURSE ---
PATIENT WAS NOTED TO BE STANDING BESIDE BED BY THIS RN AND CHARGE NURSE ; PATIENT HAD URINATED IN THE FLOOR AND SEEMED CONFUSED ; PATIENT WAS ABLE TO BE REORIENTED AND UNDERSTOOD THAT HE COULD NOT GET OUT OF BED ; PATIENT LINENS AND GOWN WERE CHANGED ; PATIENT LEFT GROIN DRESSING REMAINED CLEAN AND DRY WITH NO BLEEDING OR HEMATOMA NOTED
[2019-11-08] MEDS: clopidogrel 75 mg Tablet PO (20:33)
[2019-11-08] MEDS: atorvastatin 40 mg Tablet 80 MG PO (20:33)
[2019-11-08] MEDS: mirtazapine 15 mg Tablet PO (20:33)
[2019-11-08] MEDS: donepezil 5 MG Tablet PO (20:33)
[2019-11-09 05:42] VITALS: BP 137/66; PULSE 73; RESP 18; TEMP 36.6; O2SAT 97
[2019-11-09 05:52] LABS: Basophils # 0.1 10^3/uL (0.0-0.1); Basophils % 0.7 %; Eosinophils # 0.2 10^3/uL (0.0-0.8); Eosinophils % 2.9 %; Hematocrit 40.3 % (42.0-52.0); Hemoglobin 13.1 g/dL (11.7-16.6); Lymphocytes # 1.2 10^3/uL (0.8-4.8); Lymphocytes % 14.3 %; Mean Corpuscular HGB Conc 32.5 g/dL (30.0-36.0); Mean Corpuscular Hemoglobin 30.1 pg (28.0-34.0); Mean Corpuscular Volume 92.6 fL (80-94); Mean Platelet Volume 9.9 fL (7.4-10.4); Monocytes # 0.9 10^3/uL (0.2-0.9); Monocytes % 11.1 %; Neutrophils # 5.77 10^3/uL (1.8-7.7); Neutrophils % 70.6 %; Nucleated Red Blood Cells % 0 %; Platelet Count 210 10^3/cmm (130-400); Red Blood Count 4.35 10^6/uL (4.1-5.3); Red Cell Distribution Width 13.9 % (12.1-15.1); White Blood Count 8.2 10^3/uL (4.0-10.0)
[2019-11-09 06:20] LABS: Blood Urea Nitrogen 13 mg/dL (8-23); Calcium 8.9 mg/dL (8.5-10.5); Carbon Dioxide 29 mmol/L (22-29); Chloride 104 mmol/L (98-107); Glucose 91 mg/dL (65-115); Osmolality Calculated 286 mOsm/kg (285-295); Sodium 140 mmol/L (136-145)
[2019-11-09 07:45] VITALS: BP 161/85; PULSE 78; RESP 18; TEMP 36.4; O2SAT 90
--- NOTE | 2019-11-09 08:00 | PC.NURSE ---
Physician Notification Dr. Sepulveda notified patient has pain to right calf when ambulating. Right calf measures larger than the left by 2.5 cm and is warm to touch. Pulses are palpable and are strong with Doppler. Dr. Sepulveda to report to bedside. No new orders received at this time.
--- NOTE | 2019-11-09 08:59 | P.DS_ITS ---
Discharge Providers Date of Admission: 11/08/19 10:33 Date of Discharge: November 09, 2019 Attending Provider at Admission: Emilia Sepulveda MD Attending Provider at Discharge: Emilia Sepulveda MD Primary Care Provider: Sea Baxter Diagnoses at Discharge Discharge Diagnosis (1) Claudication in peripheral vascular disease: Status: Resolved (2) ASHD (arteriosclerotic heart disease): Status: Acute Reason for Visit Reason for Visit: peripheral angiogram Hospital Course Discharge Summary: Modesto Calixto is a 84 year old male past medical history significant for severe peripheral vascular disease, COPD, history of balloon angioplasty and stent placement in the left SFA and history of balloon angioplasty of the right SFA in 2018 for the last few months has been struggling with lifestyle limiting claudication as he cannot walk more than 50 yards he has to sit down to get over the tightness and the pain. Cilostazol was tried and patient was encouraged to walk more however despite of optimization of medicine he is not able to do much. Patient underwent peripheral angiogram nearly 1 month ago from the right to left as at that time patient was not able to differentiate which leg is hurting him more he was noted to have patent previously placed left SFA stent and no other significant lesion that can cause him claudication was noted however during the same angiogram it was learned that patient has highly significant stenosis of right SFA therefore patient was brought back for intervention. Left common approach was adopted. Right SFA was treated with CSI atherectomy followed by [id number] and drug-coated balloon angioplasty. Excellent angiographic result was achieved and good three-vessel runoff was noted at the end of the case. Postop care were remained uncomplicated. This morning patient is walking around without any difficulty. Groin wound looks good. He has been discharged home. Physical Exam Narrative: EXAM NARRATIVE: GENERAL: Patient is alert, awake and oriented x3. NECK: No jugular vein distension. HEENT: No cyanosis. No icterus. No pallor. HEART: Regular S1 and S2. No murmur, rub or gallop. LUNGS: Clear to auscultate bilaterally. ABDOMEN: Soft, nontender and nondistended. Positive bowel sounds. No guarding, rebound or tenderness. CENTRAL NERVOUS SYSTEM: Grossly nonfocal. EXTREMITIES: Lower extremities without edema bilaterally. Pulses palpable in the lower extremities, both dorsalis pedis and posterior tibial. 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 Routin e Exams 11/08/19 08:16 Taken Labs from last 24 hours 11/09/19 11/09/19 11/08/19 04:15 04:15 13:57 WBC 8.2 RBC 4.35 Hgb 13.1 Hct 40.3 L MCV 92.6 MCH 30.1 MCHC 32.5 RDW 13.9 Plt Count 210 MPV 9.9 Neut % (Auto) 70.6 Lymph % (Auto) 14.3 [place] % (Auto) 11.1 Eos % (Auto) 2.9 Baso % (Auto) 0.7 Neut # (Auto) 5.77 Lymph # (Auto) 1.2 [place] # (Auto) 0.9 Eos # (Auto) 0.2 Baso # (Auto) 0.1 Nucleated RBC % (a uto) 0 Nucleated RBCs # 0.0 APTT 34.5 Sodium 140 Potassium 4.0 Chloride 104 Carbon Dioxide 29 Anion Gap 11.0 BUN 13 Creatinine 0.9 Glucose 91 Calculated Osmolal ity 286 Calcium 8.9 Vitals: Last Vital Signs Temp 97.6 F 11/09/19 07:45 Pulse 78 11/09/19 07:45 Resp 18 11/09/19 07:45 BP 161/85 11/09/19 07:45 Pulse Ox 90 11/09/19 07:45 Discharge Plan Discharge Patient Disposition: Home Condition: Stable Prescriptions: New Adult Aspirin Regimen 81 mg tablet,delayed release (DR/EC) 81 mg PO DAILY Qty: 30 RF: 0 Continued ferrous sulfate 325 mg (65 mg iron) tablet 325 mg PO .every other day RF: 0 clopidogrel 75 mg tablet 75 mg PO BEDTIME RF: 0 sertraline 50 mg tablet 50 mg PO DAILY RF: 0 pantoprazole 40 mg tablet,delayed release (DR/EC) 40 mg PO DAILY RF: 0 amlodipine 2.5 mg tablet 2.5 mg PO DAILY RF: 0 rosuvastatin 20 mg tablet 20 mg PO BEDTIME RF: 0 gabapentin 400 mg capsule 400 mg PO TID RF: 0 Breo Ellipta 100-25 mcg/dose blister with device 1 inh INHALATION BEDTIME RF: 0 donepezil 10 mg tablet 5 mg PO BEDTIME RF: 0 tramadol 50 mg Tablet 50 mg PO TID PRN (Reason: Insomnia) RF: 0 hydroxyzine HCl 25 mg Tablet 25 mg PO TID PRN (Reason: Itching) RF: 0 tizanidine 2 mg Capsule 2 mg PO BID PRN (Reason: Dizziness) RF: 0 famotidine 20 mg Tablet 20 mg PO BID PRN (Reason: Dyspepsia) RF: 0 bisacodyl 10 mg Suppository 10 mg TN DAILY PRN (Reason: Constipation) RF: 0 ipratropium bromide 0.03 % [place],Non-Aerosol 2 spray INTRANASAL DAILY PRN (Reason: Shortness Of Breath) RF: 0 lactulose 10 gram/15 mL Solution 15 ml PO DAILY PRN (Reason: Constipation) RF: 0 polyethylene glycol 3350 17 gram Powder In Packet 17 g PO DAILY PRN (Reason: Constipation) RF: 0 magnesium hydroxide [Milk of Magnesia] 400 mg/5 mL Suspension 400 mg PO DAILY PRN (Reason: CONSTIPATION) RF: 0 mirtazapine [Remeron] 15 mg Tablet 15 mg PO BEDTIME RF: 0 acetaminophen 500 mg Capsule 500 mg PO Q6H PRN (Reason: Pain) RF: 0 memantine [Namenda] 10 mg Tablet 10 mg PO BID RF: 0 Breo Ellipta 100-25 mcg/dose Blister With Device 1 inh INHALATION DAILY RF: 0 Discontinued cilostazol 50 mg tablet 50 mg PO BID 90 Days Qty: 180 RF: 3 Discharge Orders: Discharge Order (Routine); Ordered 11/09/19 Ordered By: Emilia Sepulveda Referrals: Emilia Sepulveda MD [Physician] - (You have a follow up appointment on Tuesday, December 18, at 2:30pm. If you have any questions please call [facility].) Stephanie Ballard FNP [Nurse Practitioner] - (You have a hospital follow up with Stephanie Ballard on Tuesday, 11/15, at 9:15am. If you have any questions or concerns please call [facility]) Discharge Diet: Low Salt Discharge Activity: Increase activity as tolerated Patient Instructions: Aspirin (By mouth), Peripheral Vascular Angioplasty (DC), Post Angiogram Home Care Instructions Activity Restrictions/Additional Instructions: Follow-up with Stephanie Ballard in 7 days: Follow-up with in 3 months. Discharge Date/Time: 11/09/19 12:44 Discharge Attestations Time Spent in Discharge Care*: less than 30 min Specific Discharge Activities: Specific discharge activities: educating patient Quality Metrics Clinical Quality Measures During this hospital stay, did patient experience: None Coding Level of Care Code Established Pt Acute Health Data Administrator for Chg Fwd Patient Type Established History Expanded Problem Focused Exam Expanded Problem Focused Medical Decision Making Moderate Complexity Diagnoses Claudication in peripheral vascular disease I73.9 ASHD (arteriosclerotic heart disease) I25.10
[2019-11-09] MEDS: gabapentin 400 mg Capsule PO (09:57)
[2019-11-09] MEDS: pantoprazole DR 40 mg Tablet PO (09:58)
--- NOTE | 2019-11-09 10:05 | PC.CHAP ---
Pastoral Care Encounter/Spiritual Assessment Type of Contact [] Declined linen supervisor visit [] Patient/Family/Request visit [] Outpatient visit [] Follow-up visit [] Physician referral [] Code/Alert [x] Routine visit [] Staff referral [] Actively dying [] Patient sleeping [] Family support [] [] Out of room [] Palliative care [] [] Receiving care in room [] Pre-surgical visit [] Trauma [] Long length of stay [] ICU visit [] Other: Relational/Emotional Strength [] Patient feels connected with others/family/visitors/staff [] Distress [] Loneliness/isolation [] Abandonment Spirituality of Patient [] Person of Wendy [] Attends Restorationism of their Wendy [] Believes in Prayer [] Reads Bible or Jew materials [] There are Spiritual issues to be addressed Paramedic Interventions [x] Prayer [x] Active listening [x] Non-anxious presence [x] Spiritual/emotional support [] Crisis/trauma care [] Spiritual counseling [] Bereavement support [] Provided bereavement packet [] Provided Bible/devotional materials [] Provided toy/stuffed animal, coloring book to patient or family member [] Provided Communion [] Anointing/[place] [] Salvation [x] Completed spiritual assessment [] Other: Impact on Illness or Injury [] Angry [] Fearful [] Anxious [] Often cries [] Exhaustion [] Unable to work [] Unable to attend yarsani [] Unable to walk/stand [] Unable to read [] Unable to drive [] Unable to eat/drink [] Unable to sleep [] Unable to be with family [] Patient intubated [] Other: Summary Patient waiting to be discharged. Feels so much better Time spent with patient 10 min
--- NOTE | 2019-11-09 11:45 | PC.RESP ---
Smoking Cessation and Pulmonary Rehab information sent to patient.
--- NOTE | 2019-11-09 12:20 | PC.NURSE ---
Discharge instructions given per the physician's orders. Patient verbalized understanding and did not have any further questions. Medications delivered to bedside.
[2019-11-09 12:44] VITALS: BP 161/85; PULSE 78; RESP 18; TEMP 36.4; O2SAT 90
== END 2019-11-09 12:44 | disposition home or self-care (01) ==
LOC: CSU 10:34
PROVIDERS: Admitting Provider Internal Medicine Cardiovascular Disease; PCP Family Medicine; Visit Provider Internal Medicine Cardiovascular Disease
DX: I70.211 Atherosclerosis of native arteries of extremities with intermittent claudication, right leg (principal); I25.10 Atherosclerotic heart disease of native coronary artery without angina pectoris; Z95.5 Presence of coronary angioplasty implant and graft; J44.9 Chronic obstructive pulmonary disease, unspecified; I10 Essential (primary) hypertension; F17.210 Nicotine dependence, cigarettes, uncomplicated; Z79.02 Long term (current) use of antithrombotics/antiplatelets
CPT/HCPCS: 12345; 36415; 37225; 75716; 80048; 85025; 85730; 96360; 96361; C1724; C1725; C1769; C1887; C1894; C2623; G0378; J1644; J2250; J3010; J3490; J7030; Q0163; Q9967

== ENCOUNTER → 2019-11-14 10:17 | Outpatient (BNVA) | payer MEDICARE, MEDICAID, SELFPAY | PROVIDERS: PCP Family Medicine; Visit Provider Nurse Practitioner Family | DX: I73.9 Peripheral vascular disease, unspecified (principal) | CPT/HCPCS: 80048 ==

== ENCOUNTER 2020-08-11 00:45 | Inpatient (IN) | payer MEDICARE, MEDICAID, SELFPAY ==
[2020-08-11] VITALS (11 sets, daily range): BP systolic 136–161; BP diastolic 56–74; PULSE 77–96; RESP 16–20; TEMP 36.5–37.1; O2SAT 87–98
--- NOTE | 2020-08-11 01:13 | PM.HP ---
Providers/Chief Complaint Admitting Physician: Emilia Lizarraga MD Primary Care Provider: Sea Baxter Chief Complaint: HIP FX,TXFR MERCY/MTN VIEW History of Present Illness Modesto Calixto is a 85 year old male who has history of dementia, peripheral vascular disease, lung cancer, prostate and kidney cancer presented from [facility] living after sustaining a fall. Patient is stating that he was asleep, he rolled over and fell from his bed on his left side. He started experiencing left leg pain, also hurt his elbow. He is denying any chest pain, seizure-like activities, or syncopal event. He is attributing his fall to being too sleepy. He was due for removal of nasal packing today by ENT, because of nasal bleed Plavix was discontinued that he was taking for peripheral vascular disease. He was evaluated at [facility], CBC and BMP unremarkable other than creatinine 1.1, imaging revealed impacted left subcapital neck fracture of femur, chest x-ray showing chronic COPD changes EKG showing sinus rhythm Documentation reviewed from the outside facility Review of Systems Const: Reports: body aches and fatigue; Denies: fever(s) Eyes: Denies: change in vision ENMT: Denies: throat pain Card: Denies: chest pain Resp: Denies: dyspnea GI: Denies: abdominal pain : Denies: flank pain Musc: Denies: neck pain Skin/Breast: Reports: new lesions and striae Neuro: Reports: confusion; Denies: headache(s) Psych: Denies: anxiety Endo: Denies: polyuria Thor/Lymph: Denies: easy bruising All/Imm: Denies: urticaria Medications/Allergies Home Medications Medication Instructions Recorded Confirmed Last Taken Type clopidogrel 75 mg tablet 75 mg PO BEDTIME 08/01/19 12/19/19 11/07/19 19:00 History donepezil 10 mg tablet 5 mg PO BEDTIME 08/01/19 12/19/19 11/07/19 20:00 History ferrous sulfate 325 mg (65 mg 325 mg PO .every other day tab 08/01/19 12/19/19 11/08/19 06:00 History iron) tablet gabapentin 400 mg capsule 400 mg PO TID 08/01/19 12/19/19 11/08/19 06:00 History pantoprazole 40 mg tablet,delayed 40 mg PO DAILY 08/01/19 12/19/19 11/08/19 06:00 History release rosuvastatin 20 mg tablet 20 mg PO BEDTIME 08/01/19 12/19/19 11/07/19 20:00 History sertraline 50 mg tablet 50 mg PO DAILY 08/01/19 12/19/19 11/08/19 06:00 History bisacodyl 10 mg AR DAILY PRN 10/05/19 12/19/19 Unknown History famotidine 20 mg PO BID PRN 10/05/19 12/19/19 Unknown History ipratropium bromide 2 spray INTRANASAL DAILY PRN 10/05/19 12/19/19 Unknown History lactulose 15 ml PO DAILY PRN 10/05/19 12/19/19 Unknown History Breo Ellipta 1 inh INHALATION DAILY 10/08/19 12/19/19 11/08/19 06:00 History acetaminophen 500 mg PO Q6H PRN 10/08/19 12/19/19 Unknown History magnesium hydroxide [Milk of 400 mg PO DAILY PRN 10/08/19 12/19/19 Unknown History Magnesia] memantine [Namenda] 10 mg PO BID 10/08/19 12/19/19 11/08/19 06:00 History mirtazapine [Remeron] 15 mg PO BEDTIME 10/08/19 12/19/19 11/07/19 19:00 History polyethylene glycol 3350 17 g PO DAILY PRN 10/08/19 12/19/19 Unknown History hydroxyzine HCl 25 mg PO TID PRN 11/08/19 12/19/19 Unknown History tizanidine 2 mg PO BID PRN 11/08/19 12/19/19 Unknown History tramadol 50 mg PO TID PRN 11/08/19 12/19/19 Unknown History aspirin [Adult Aspirin Regimen] 81 mg PO DAILY #30 tab 11/09/19 12/19/19 Unknown Rx Allergies Allergy/AdvReac Type Severity Reaction Status Date / Time amoxicillin Allergy Unknown Unknown Verified 11/08/19 08:20 clavulanic acid Allergy Unknown Unknown Verified 11/08/19 08:20 [From Augmentin] sulfamethoxazole Allergy Unknown Unknown Verified 11/08/19 08:20 [From Bactrim] trimethoprim Allergy Unknown Unknown Verified 11/08/19 08:20 PFSH Acute PFSH: Medical History Anemia ASHD (arteriosclerotic heart disease) Carotid arterial disease Left internal carotid 50% Claudication in peripheral vascular disease COPD (chronic obstructive pulmonary disease) Dementia History of prostate cancer HTN (hypertension) Kidney malignancy Lung cancer Peripheral arterial disease Prostate cancer Surgical History H/O brain surgery Thalamic surgery H/O inguinal hernia repair History of appendectomy S/P peripheral artery angioplasty with stent placement Right SFA treated with CSI atherectomy followed by a nondrug-coated and drug-coated balloon angioplasty with excellent results Left SFA stent Family History Other Diabetes Heart disease Stroke Social History (Updated 08/11/20 @ 02:02 by Emilia Lizarraga MD) Smoking and tobacco status: heavy tobacco smoker cigarettes [ Other cigarette details: 40-pgor-djuu smoking history ] Alcohol intake: never Substance/Drug Use: never Housing: Assisted Living Facility Physical Exam Narrative: EXAM NARRATIVE: elderly male appears stated age He was in supine position resting comfortably when entered the room He was able to mention above HPI However he kept his eyes closed during my evaluation, answer my questions appropriately, seems lethargic S1, S2 no murmur appreciated no signs of heart failure or dehydration Abdomen soft nontender bowel sound present Lower extremity no edema gangrene or ulcer Dorsalis pedis pulses 2+ bilaterally No ischemia gangrene of lower extremities Left elbow laceration no active bleeding Do not see any anterior nasal packing, he has some dried blood around his nares No active neurological deficits, cognitive impairment A&P Assessment and plan (1) Fracture of femoral neck, left: Status: Acute Additional A&P Information Subcapital left femoral neck fracture Patient is attributing his fall to losing balance and being too sleepy, no active chest pain or seizure-like activity, I do see tramadol and mirtazapine as bedtime medications which can cause sedation as well, I will hold sedatives at this point Dr. Lyle has been contacted N.p.o. DVT prophylaxis SCD I will keep him on maintenance fluid Considering urgent nature of surgical intervention would not recommend any cardiac work-up, class I risk with 6% 30-day mortality risk EKG sinus rhythm Peripheral vascular disease Plavix on hold secondary to nosebleed continue atorvastatin Dementia: Continue memantine and donepezil COPD without acute exacerbation Saturating well on 2 L nasal cannula code status: DNR DNI confirmed with the patient, documented and reviewed as well N.p.o. dvt ppx: SCD Attestations Medical Necessity Statement*: Anticipating stay in the hospital for hip fracture to cross more than 2 midnights Time Spent in Patient Care: (>than 50% of time spent in counselling and/or direct pt care on unit). 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
[2020-08-11] MEDS: cefTRIAXone 1,000 MG in sodium chloride 0.9% (plus) 50 ML 100 MG IV (01:55)
[2020-08-11] MEDS: dextrose 5%-sod chloride 0.45% 1,000 ML 30 ML IV (01:55)
[2020-08-11 02:55] LABS: SARS Covid-2 Antigen Negative (Negative)
[2020-08-11 05:45] LABS: Basophils # 0.1 10^3/uL (0.0-0.1); Basophils % 0.5 %; Eosinophils # 0.3 10^3/uL (0.0-0.8); Eosinophils % 2.3 %; Hematocrit 37.4 % (42.0-52.0); Lymphocytes # 1.3 10^3/uL (0.8-4.8); Lymphocytes % 9.3 %; Mean Corpuscular HGB Conc 32.1 g/dL (30.0-36.0); Mean Corpuscular Hemoglobin 28.5 pg (28.0-34.0); Mean Corpuscular Volume 88.8 fL (80-94); Mean Platelet Volume 9.2 fL (7.4-10.4); Monocytes # 0.9 10^3/uL (0.2-0.9); Monocytes % 6.5 %; Neutrophils # 11.27 10^3/uL (1.8-7.7); Nucleated Red Blood Cells % 0 %; Platelet Count 249 10^3/cmm (130-400); Red Blood Count 4.21 10^6/uL (4.1-5.3); Red Cell Distribution Width 14.3 % (12.1-15.1); White Blood Count 13.9 10^3/uL (4.0-10.0)
[2020-08-11 06:09] LABS: Anion Gap 13.1 (5-19); Blood Urea Nitrogen 22 mg/dL (8-23); Calcium 8.5 mg/dL (8.5-10.5); Carbon Dioxide 25 mmol/L (22-29); Chloride 106 mmol/L (98-107); Glucose 123 mg/dL (65-115); Osmolality Calculated 295 mOsm/kg (285-295); Potassium 4.1 mmol/L (3.5-5.1); Sodium 140 mmol/L (136-145)
--- NOTE | 2020-08-11 09:06 | CT_ITS ---
WS: [id number] NONCONTRAST CT LEFT HIP TECHNIQUE: Noncontrast CT left with coronal and sagittal reformatted images. CLINICAL INFORMATION: Left Hip Fracture definition COMPARISON: None. DLP: 586.[address] scans at [facility] use at least one of these dose optimization techniques: automat ed exposure control; mA and/or kV adjustment per patient size (includes targeted exams where dose is matched to clinical indication); or iterative reconstruction. FINDINGS: Osteopenia. Subcapital femoral neck fracture with impaction. Mild varus rotation. Mild posterior disp lacement of the femoral head relative to the femoral neck. Normal greater trochanter. Normal lesser t rochanter. Normal acetabulum. Normal pubic rami. No other visualized fractures. Left external iliac and common f emoral artery stent. Hypertrophic changes sacroiliac joint IMPRESSION: Subcapital left femoral neck fracture described above.
--- NOTE | 2020-08-11 09:18 | P.CONIM_ITS ---
Providers/Reason For Consult Consulting Physican/Specialty*: Dr. Mleba Lyle - Orthopedics Reason for Consult*: Left Subcapital Hip Fracture Requesting Physcian: Emergency Department [facility] Attending Physician: Kathy Pulido MD Primary Care Provider: Sea Baxter History of Present Illness History of Present Illness Modesto Calixto is a 85 year old male who was in his usual state of health where he lives at [facility]. I was called by [facility] last evening regarding a transfer secondary to a hip fracture. The patient presented to their emergency department after an unwitnessed fall in assisted living. At that time, the patient was found to have a slightly impacted subcapital hip fracture on the left. We appropriately transferred him here to the medical service with plans to proceed with surgical intervention. The patient has a history of dementia, and he does not recall his fall. He also has a history of lung cancer with prostate and kidney involvement as well. According to the family today, they have been talking about placing him in a higher level of care. Additionally, they have been discussing hospice. The patient has had significant nosebleeds in the past, and this has been cauterized here in [place] as an outpatient. He was to have his packing removed today, but the packing is already gone at the time of his presentation to the emergency department. According to the patient's son, Mr. Calixto pulled the assistance cord when he fell, and the nurses found him on the floor on his stomach. He had spilled his food during the fall. Review of Systems Const: Reports: body aches and fatigue; Denies: fever(s) Eyes: Denies: change in vision ENMT: Denies: throat pain Card: Denies: chest pain Resp: Denies: dyspnea GI: Denies: abdominal pain : Denies: flank pain Musc: Denies: neck pain Skin/Breast: Reports: new lesions, striae and surgical incision Neuro: Reports: confusion; Denies: headache(s) Psych: Denies: anxiety Endo: Denies: polyuria Thor/Lymph: Denies: easy bruising All/Imm: Denies: urticaria Meds/Allergies Home Medications and Allergies Home Medications Medication Instructions Recorded Confirmed Last Taken Type clopidogrel 75 mg tablet 75 mg PO DAILY@08/01/19 08/11/20 11/07/19 19:00 History donepezil 10 mg tablet 5 mg PO BEDTIME@08/01/19 08/11/20 11/07/19 20:00 History ferrous sulfate 325 mg (65 mg 325 mg PO .every other day tab 08/01/19 08/11/20 11/08/19 06:00 History iron) tablet gabapentin 400 mg capsule 400 mg PO TID@,08/01/19 08/11/20 11/08/19 06:00 History pantoprazole 40 mg tablet,delayed 40 mg PO DAILY@08/01/19 08/11/20 11/08/19 06:00 History release rosuvastatin 20 mg tablet 20 mg PO DAILY@08/01/19 08/11/20 11/07/19 20:00 History sertraline 50 mg tablet 50 mg PO DAILY@08/01/19 08/11/20 11/08/19 06:00 History bisacodyl 10 mg PA DAILY PRN 10/05/19 08/11/20 Unknown History ipratropium bromide 2 spray INTRANASAL DAILY PRN 10/05/19 08/11/20 Unknown History lactulose 45 ml PO BID PRN 10/05/19 08/11/20 Unknown History Breo Ellipta 1 inh INHALATION DAILY@10/08/19 08/11/20 11/08/19 06:00 History acetaminophen 1,000 mg PO Q6H PRN 10/08/19 08/11/20 Unknown History magnesium hydroxide [Milk of 30 ml PO DAILY PRN 10/08/19 08/11/20 Unknown History Magnesia] memantine [Namenda] 10 mg PO BID@10/08/19 08/11/20 11/08/19 06:00 History mirtazapine [Remeron] 15 mg PO DAILY@10/08/19 08/11/20 11/07/19 19:00 History polyethylene glycol 3350 17 g PO DAILY PRN 10/08/19 08/11/20 Unknown History tramadol 50 mg PO Q8H PRN 11/08/19 08/11/20 Unknown History aspirin [Adult Aspirin Regimen] 81 mg PO DAILY #30 tab 11/09/19 08/11/20 Unknown Rx cholecalciferol (vitamin D3) 50,000 unit PO Q7D 08/11/20 08/11/20 Unknown History doxycycline hyclate 100 mg PO BID@,08/11/20 08/11/20 Unknown History fluticasone propionate [Flonase] 1 spray INTRANASAL DAILY@08/11/20 08/11/20 Unknown History nut.tx,spec.frm,l-fr,iron-fos 1 ea PO TID@,,08/11/20 08/11/20 Unknown History [TwoCal HN] Allergies Allergy/AdvReac Type Severity Reaction Status Date / Time amoxicillin Allergy Unknown Unknown Verified 08/11/20 10:55 clavulanic acid Allergy Unknown Unknown Verified 11/08/19 08:20 [From Augmentin] sulfamethoxazole Allergy Unknown Unknown Verified 08/11/20 10:55 [From Bactrim] trimethoprim Allergy Unknown Unknown Verified 08/11/20 10:55 Current Medications Current Medications Generic Name Dose Route Start Last Admin Trade Name Freq PRN Reason Stop Dose Admin Dextrose/Sodium Chloride 1,000 mls @ 30 mls/hr 08/11/20 01:30 08/11/20 01:55 Dextrose 5%-Sod Chloride 0.45% IV 30 mls/hr .Q24H TEE Administration PFSH Acute PFSH: Medical History Anemia ASHD (arteriosclerotic heart disease) Carotid arterial disease Left internal carotid 50% Claudication in peripheral vascular disease COPD (chronic obstructive pulmonary disease) Dementia History of prostate cancer HTN (hypertension) Kidney malignancy Lung cancer Peripheral arterial disease Prostate cancer Surgical History H/O brain surgery Thalamic surgery H/O inguinal hernia repair History of appendectomy S/P peripheral artery angioplasty with stent placement Right SFA treated with CSI atherectomy followed by a nondrug-coated and drug- coated balloon angioplasty with excellent results Left SFA stent Family History Other Diabetes Heart disease Stroke Social History Smoking and tobacco status: heavy tobacco smoker cigarettes [ Other cigarette details: 16-[id number]-[id number] smoking history ] Alcohol intake: never Substance/Drug Use: never Housing: Assisted Living Facility Dietary Habits: Current diet type/program: regular Caffeine: No Exercise: What type of physical activity do you participate in?: none Safety: Seatbelt use: always Home Safety: Working smoke detector in home: Yes Fire extinguisher in home: Yes Carbon monoxide detector in home: No Vitals/I&O/Wt Last Vital Signs Temp 98.6 F 08/11/20 08:00 Pulse 77 08/11/20 08:32 Resp 20 H 08/11/20 08:32 BP 154/56 08/11/20 08:00 Pulse Ox 92 08/11/20 08:32 08/10/20 08/11/20 08/11/20 22:59 06:59 14:59 Intake Total 50 / 50 Output Total 400 / 400 Balance -400 / -400 50 / 50 Weight last 48 hrs Weight 141 lb Physical Exam Const: COMMON NORMALS: no acute distress, average body habitus, patient oriented x3 and alert GENERAL APPEARANCE: cooperative and comfortable ORIENTATION/CONSCIOUSNESS: Yes awake HENMT: COMMON NORMALS: normocephalic and atraumatic HEAD & SCALP: normocephalic and atraumatic Eye: GENERAL EYE: appearance normal, both eyes and all related structures Chest: COMMONS NORMALS: normal inspection of the chest Resp: COMMON NORMALS: normal respiratory effort EFFORT & INSPECTION: Yes able to speak in complete sentences and Yes symmetric chest movement Extremity: LEFT LOWER EXTREMITY: Yes hip joint Left hip: Yes inspection (There is no significant bruising or swelling.), Yes palpation (No tenderness to light palpation), Yes ROM (Not evaluated secondary to pain) and Yes neurovascular exam (Intact distally) Neuro: COMMON NORMALS: patient oriented x3 SENSORIUM/ORIENTATION: Yes alert Psych: COMMON NORMALS: mental status grossly normal APPEARANCE: Yes grossly normal ATTITUDE: Yes calm and Yes engaged ATTENTION/CONCENTRATION: Yes attention grossly intact Skin: COMMON NORMALS: no rashes or lesions noted GENERAL SKIN EXAM: no rashes or lesions noted Urinary Catheter Management^: Han: Cath Placed During This Visit: yes Reason for Continuing Indwelling Catheter: Accurate Measurement of Urinary Output in Critically Ill Patients Urinary Catheter Date of Insertion: 08/11/20 Urinary Catheter Time of Insertion: 02:30 Data Imaging^: Xray Ortho: I personally reviewed and interpreted this imaging study as follows: My impression: X-ray imaging is reviewed from [facility]. There is AN impacted subcapital hip fracture, but there is not a good lateral, and I had some concern that there was more displacement than what was visualized on the plain films. Therefore, CT was recommended for further evaluation. Other CT: I personally reviewed and interpreted this imaging study as follows: My impression: CT is personally evaluated and interpreted by me. The imaging demonstrates a left subcapital hip fracture. There is impaction, but there is also displacement of the femoral head. Although this is mild, it is significant. A&P Assessment and plan (1) Fracture of femoral neck, left: Imaging studies have been reviewed from [place] and the CT which was obtained here. The patient has an impacted subcapital hip fracture with posterior displacement of the femoral head. The displacement is felt to be significant enough when considered along with the patient's medical history that I am recommending a bipolar hip arthroplasty as opposed to cannulated screws. It is felt that the bipolar hip arthroplasty will allow the patient to proceed more quickly to recover from this fracture. I discussed the surgery and reasoning for it with the patient and his son. They are in agreement. Questions are answered. Consents are signed. Patient will require hos pitalization for this treatment and subsequent care following surgical intervention. The family will begin the process of consideration for higher level of care when he returns to outpatient living. Status: Acute Consult Attestations Medical Necessity Statement: Per Hospitalist service and for definitive fracture care. Coding Level of Care Code Acute Epic Analyst for [facility] Margarito Diagnoses Fracture of femoral neck, left S72.002A
[2020-08-11] MEDS: pantoprazole DR 40 mg Tablet PO (10:00)
[2020-08-11] MEDS: sennosides-docusate Tablet 1 TAB PO (10:00)
[2020-08-11] MEDS: memantine 5 mg tablet 10 MG PO ×2 (10:00→18:23)
[2020-08-11] MEDS: acetaminophen 500 mg Tablet PO (10:03)
[2020-08-11 12:02] LABS: Urine Appearance Clear (CLEAR); Urine Color Yellow (Yellow); pH Urine 5 (5-7)
[2020-08-11 12:03] LABS: Add Urine Microscopic? YES; Bilirubin Urine 1+ (Negative); Blood Urine 2+ (Negative); Glucose Urine UA Norm (Normal); Ketones Urine Negative (Negative); Leukocyte Esterase Urine Negative (Negative); Nitrate Urine Negative (Negative); Protein Urine Neg (Negative); Urobilinogen Urine 1 mg/dL (Negative)
[2020-08-11] MEDS: CELEcoxib 200 mg Capsule 400 MG PO (12:05)
[2020-08-11 12:32] LABS: Add Urine Culture? Yes; Bacteria Urine TRACE /hpf; Mucus Urine TRACE /hpf; RBC Urine 15-25 /hpf (0-2); Squamous Epithelial Cell Urine 0-4 /hpf (0-5)
--- NOTE | 2020-08-11 17:47 | PM.PN ---
Subjective Subjective: Interval history: Overnight labs and H&P reviewed. No specific complaints except constipation. No nasal bleeding at this time, plan for or in the morning. Pain is currently well controlled. Medications: Reviewed: Yes Vitals/I&O/Wt Last Vital Signs Temp 98.7 F 08/11/20 14:59 Pulse 85 08/11/20 14:59 Resp 18 08/11/20 14:59 BP 148/71 08/11/20 14:59 Pulse Ox 98 08/11/20 14:59 08/11/20 08/11/20 08/11/20 06:59 14:59 22:59 Intake Total 50 / 50 Output Total 400 / 400 Balance -400 / -400 50 / 50 Weight last 48 hrs Weight 63.957 kg Physical Exam Urinary Catheter Management^: Han: Cath Placed During This Visit: yes Reason for Continuing Indwelling Catheter: Accurate Measurement of Urinary Output in Critically Ill Patients Urinary Catheter Date of Insertion: 08/11/20 Urinary Catheter Time of Insertion: 02:30 Data : 08/11/20 05:30 08/11/20 05:30 A&P Assessment and plan (1) Fracture of femoral neck, left: Status: Acute Additional A&P Information Subcapital left femoral neck fracture Patient is attributing his fall to losing balance and being too sleepy, no active chest pain or seizure-like activity, Plan for surgical intervention in the morning class I risk with 6% 30-day mortality risk EKG sinus rhythm Peripheral vascular disease Plavix on hold secondary to nosebleed and upcoming surgery, continue atorvastatin Recent recurrent nosebleed, obtain records from outpatient ENT. Dementia: Continue memantine and donepezil COPD without acute exacerbation Saturating well on 2 L nasal cannula code status: DNR DNI confirmed with the patient, documented and reviewed as well N.p.o. after midnight, regular diet in the interim dvt ppx: SCD Attestations Medical Necessity Statement*: Surgical intervention in the morning Coding Level of Care Code Acute Service Center Assistant for Vanessa [facility] Diagnoses Fracture of femoral neck, left S72.002A
[2020-08-11] MEDS: ondansetron 2 mg/ML SDV 2 mL 4 MG IVP (18:02)
[2020-08-11] MEDS: atorvastatin 40 mg Tablet 80 MG PO (21:27)
[2020-08-11] MEDS: donepezil 5 MG Tablet PO (21:27)
[2020-08-11] MEDS: docusate sodium 100 mg Capsule PO (22:55)
[2020-08-12] VITALS (19 sets, daily range): BP systolic 109–156; BP diastolic 50–87; PULSE 80–95; RESP 16–23; TEMP 36.3–37.2; O2SAT 90–97
[2020-08-12] MEDS: pantoprazole DR 40 mg Tablet PO (08:38)
[2020-08-12] MEDS: sennosides-docusate Tablet 1 TAB PO (08:38)
[2020-08-12] MEDS: memantine 5 mg tablet 10 MG PO ×2 (08:38→17:15)
--- NOTE | 2020-08-12 11:00 | P.PN_ITS ---
Subjective Subjective: Interval history: No new complaints. Awaiting OR this afternoon. Medications: Reviewed: Yes Vitals/I&O/Wt Last Vital Signs Temp 98.1 F 08/12/20 17:32 Pulse 82 08/12/20 17:32 Resp 16 08/12/20 17:32 BP 138/87 08/12/20 17:32 Pulse Ox 97 08/12/20 17:32 08/12/20 08/12/20 08/12/20 06:59 14:59 22:59 Intake Total 1000 / 1000 Output Total 400 / 400 Balance -400 / -230 1000 / 1000 Weight last 48 hrs Weight 63.957 kg Physical Exam Urinary Catheter Management^: Han: Cath Placed During This Visit: yes Reason for Continuing Indwelling Catheter: Required Immobilization for Trauma or Surgery or Anesthesia Urinary Catheter Date of Insertion: 08/11/20 Urinary Catheter Time of Insertion: 02:30 Data : 08/11/20 05:30 08/11/20 05:30 Micro: Microbiology 08/11/20 Unknown Urine Culture - Preliminary Urine,Clean Catch A&P Assessment and plan (1) Fracture of femoral neck, left: Status: Acute Additional A&P Information Subcapital left femoral neck fracture Patient is attributing his fall to losing balance and being too sleepy, no active chest pain or seizure-like activity, Plan for surgical intervention in the afternoon today class I risk with 6% 30-day mortality risk EKG sinus rhythm Peripheral vascular disease Plavix on hold secondary to nosebleed and upcoming surgery, continue atorvastatin Recent recurrent nosebleed, obtain records from outpatient ENT. Dementia: Continue memantine and donepezil COPD without acute exacerbation Saturating well on 2 L nasal cannula code status: DNR DNI N.p.o. dvt ppx: SCD Attestations Medical Necessity Statement*: surgical intervention in the afternoon Coding Level of Care Code Acute Legal Support Specialist for [facility] Fwd Diagnoses Fracture of femoral neck, left S72.002A
[2020-08-12] MEDS: dextrose 5%-sod chloride 0.45% 1,000 ML 30 ML IV (12:37)
[2020-08-12 14:28] LABS: Coronavirus Test Green County Not Detected
--- NOTE | 2020-08-12 17:54 | PM.MISC ---
Miscellaneous Note Purpose of Documentation: Visit in preop area Note: The patient was seen in the preop holding area with his son. We reviewed that we were planning a bipolar left hip arthroplasty. The patient is scheduled for this and understands through his son the risks and complications. The son has agreed to the surgical procedure. Consents have been signed.
--- NOTE | 2020-08-12 17:55 | P.OP_ITS ---
Operative Report Date of procedure: August 12, 2020 Pre-op Diagnosis: Left Femoral neck fracture, displaced Post-op diagnosis: same Post-op Findings: Displaced left femoral neck fracture with delamination of cartilage Procedure Done: Left bipolar hip arthroplasty Implants: [place] Accolade total hip system with a size 5 x 127 degree neck angle hip stem, Accolade II, with a +0 mm offset 28 mm outer diameter V 40 femoral head and a universal bipolar cup size 53 mm x 28 mm inner diameter Specimens removed/disposition: Femoral head sent to pathology for decalcification and evaluation for metastatic disease Pathology: none sent Pathology: Femoral head Surgeon: Melba Lyle Manager Technical Services: [facility] operating room technicians Anesthesia: MAC (With spinal) Estimated blood loss (mL): 50 IV fluids (mL): 500 Urine output (mL): 300 Complications: None Findings: Subcapital left hip fracture with delamination of the articular cartilage. Following the procedure, the hip was stable at 90 degrees of flexion with 30 degrees of internal rotation and 60 degrees of adduction. Additionally, it was stable to toe hang and external rotation. Leg lengths were felt to have been appropriately restored. Condition: stable Disposition: PACU (Then to floor for postoperative rehabilitation and pain management) Brief History: This 85-year-old gentleman presented to the emergency department after a fall resulting in the above fracture. He was in his usual living situation which is assisted living. Upon evaluation, he was found to have a subcapital hip fracture. Discussion was undertaken with the son, and given his multiple medical comorbidities and the degree of displacement of the fracture, we did elect to proceed with a bipolar hip arthroplasty as opposed to pinning in situ. The benefits and risks of each procedure were discussed with the son. He agreed with our plan. Procedure: The patient was brought to the operating theater, and after undergoing adequate spinal anesthesia with MAC, he was transferred to the operating room table. The patient was placed in the full lateral position and held in place with the pegboard. Patient's left lower extremity was draped free and was subsequently prepped and further draped free. A surgical pause was performed prior to commencement of the surgical procedure. During the surgical pause, we confirmed the site and side of surgery as well as availability of equipment. Additionally, we confirmed preoperative surgical markings. X-rays were also reviewed during this time. Following the surgical pause, an incision was made centering over the greater trochanter continuing proximally and distally as necessary to allow access to the hip joint. Dissection continues to skin and soft tissue using scalpel. Incision was obtained using electrocautery. Tensor fascia katrin was identified and incised longitudinally. Sciatic nerve was identified and protected throughout the surgical procedure. A Charnley U retractor was placed with care being taken to protect the sciatic nerve during placement. The hip was internally rotated. Piriformis muscle was then identified, tagged, and subsequently incised from the posterior aspect of the hip joint. The remaining short external rotators were also incised. These were then elevated off the capsule and the capsule was entered in a T-type fashion. Each side of the capsule was then tagged. The proximal femur was brought into an appropriate position of the femoral neck osteotomy was accomplished. This was in appropriate position for placement of the prosthetic component. Femoral head was then removed from the acetabulum utilizing a corkscrew. It was subsequently measured. The appropriate size trial was chosen. This was a size 53 mm which fit nicely. A 54 mm was also trialed but seemed too large. Therefore size 53 mm was the chosen size for final implantation. Femoral short filler bunch machine operator was then placed and attention was directed to the proximal femur. Initially, the proximal femur was addressed with a box chisel, and this was followed by a canal finder and subsequently broaches. The hip was broached to a size 5. Size 5 broach was noted to fit nicely and have good fit and fill. Therefore this was to be the chosen component. Trial reduction was accomplished with a 53 mm bipolar universal bipolar head component and a +0 mm offset femoral head. With this, the above-noted stabilities were accomplished. This was felt to be appropriate and therefore trial components were removed and the hip was irrigated. Acetabulum was evaluated for any loose bodies or other soft tissues requiring resection. We then prepared for implantation. The size 5 Accolade II femoral stem with a 127 degree neck angle was impacted into position. This was placed without difficulty. Onto this was placed the construct of the 53 mm outer universal bipolar head component with a 28 mm inner diameter, and the 28 mm diameter +0 neck length femoral head. This was placed onto the trunnion of the femoral component. It was impacted into position and pulled upon to assure that there was no dissociation. Once again the hip was irrigated and suctioned dry and was reduced. We then irrigated the hip further with 20 mL of Betadine mixed into 500 mL of normal saline. This was allowed to remain in the wound for approximately 3 minutes. It was then suctioned dry and irrigated with normal saline. This was suctioned dry again and closure was accomplished with 0 Vicryl in the capsular tissues followed by reattachment of the piriformis with 0 Vicryl. Additionally, the tensor was closed with 0 Vicryl in an interrupted fashion. Subcutaneous tissues were closed with 2-0 Monocryl. Skin was closed with 3-0 Monocryl. This was followed by Dermabond and Steri-Strips. A sterile dressing was placed consisting of Tegaderm. The patient was returned the Recovery Room in satisfactory condition. There were no complications. The patient will be discharged to the floor for postoperative rehabilitation and pain management. Associated Problem List Diagnoses (1) Fracture of femoral neck, left: Qualifiers: Encounter type: initial encounter Fracture type: closed Qualified Code(s): S72.002A - Fracture of unspecified part of neck of left femur, initial encounter for closed fracture
--- NOTE | 2020-08-12 18:20 | ANES.PREANE2 ---
Pre-Anesthetic Assessment Pre-Anesthetic Assessment: Height/Weight: Height 1.68 m Weight 63.957 kg Temp Pulse Resp BP Pulse Ox 98.1 F 82 16 138/87 97 08/12/20 17:32 08/12/20 17:32 08/12/20 17:32 08/12/20 17:32 08/12/20 17:32 Preop Diagnosis: Left Femoral neck fracture Proposed Procedure: Operation Date: 08/12/20 16:25 Proposed Procedures p Hemiarthroplasty Hip(Left) - Melba Lyle MD Was Beta Rocio taken within 24 hours: N/A Was Clonidine taken within 24 hours: N/A Last intake: Intake Last Solid Date 08/11/20 Social: Social History: Tobacco and No alcohol Exam: Pre-Anes Outpt Exam: alert, oriented x 3 and regular rate & rhythm Additional Exam Findings (including area of procedure): BBS decreased Airway: Submandibular: WNL Cervical ROM: WNL MP: 2 Dentition: False Pulmonary: Pulmonary: COPD CV/HEM: CV/HEM: CAD, HTN and PVD GI: GI: GERD Neuropsych: Neuropsych: Dementia Anesthetic Plan: ASA status: 3 Anesthesia: Regional (specify below) (SAB) Risk of > 500 ml blood loss (7ml/kg in children): No Meds/Allergies Current Medications: Current Medications Generic Name Dose Route Start Last Admin Trade Name Freq PRN Reason Stop Dose Admin Acetaminophen 500 mg 08/11/20 01:22 08/11/20 10:03 Acetaminophen 50 0 Mg Tablet PO 500 mg Q6H PRN Administration Pain Atorvastatin Calci um 80 mg 08/11/20 21:00 08/11/20 21:27 Atorvastatin 40 Mg Tablet PO 80 mg BEDTIME TEE Administration Donepezil HCl 5 mg 08/11/20 21:00 08/11/20 21:27 Donepezil 5 Mg T ablet PO 5 mg BEDTIME TEE Administration Dextrose/Sodium Ch loride 1,000 mls @ 30 ml s/hr 08/11/20 01:30 08/12/20 12:37 Dextrose 5%-Sod Chloride 0.45% IV 30 mls/hr .Q24H TEE Administration Memantine 10 mg 08/11/20 09:00 08/12/20 17:15 Memantine 5 Mg T ablet PO 10 mg BID TEE Administration Ondansetron HCl 4 mg 08/11/20 17:23 08/11/20 18:02 Ondansetron 2 Mg /Ml Sdv 2 Ml IVP 4 mg Q6H PRN Administration NAUSEA AND VOMITI NG Pantoprazole Sodiu m 40 mg 08/11/20 09:00 08/12/20 08:[address] 40 Mg Tablet PO 40 mg DAILY TEE Administration Senna/Docusate Sod ium 1 tab 08/11/20 09:00 08/12/20 08:38 Sennosides-Docus ate Tablet PO 1 tab DAILY TEE Administration PFSH Anesthesia PFSH: Medical History Anemia ASHD (arteriosclerotic heart disease) Carotid arterial disease Left internal carotid 50% Claudication in peripheral vascular disease COPD (chronic obstructive pulmonary disease) Dementia History of prostate cancer HTN (hypertension) Kidney malignancy Lung cancer Peripheral arterial disease Prostate cancer Surgical History H/O brain surgery Thalamic surgery H/O inguinal hernia repair History of appendectomy S/P peripheral artery angioplasty with stent placement Right SFA treated with CSI atherectomy followed by a nondrug-coated and drug-coated balloon angioplasty with excellent results Left SFA stent Family History Other Diabetes Heart disease Stroke Social History Smoking and tobacco status: heavy tobacco smoker cigarettes [ Other cigarette details: [id number] smoking history ] Alcohol intake: never Substance/Drug Use: never Housing: Assisted Living Facility Data Anesthesia CBC & Chem 7: 08/11/20 05:30 08/11/20 05:30 Other Labs: Laboratory Results - last 48 hr 08/11/20 08/11/20 08/11/20 02:05 05:30 05:30 WBC 13.9 H RBC 4.21 Hgb 12.0 Hct 37.4 L MCV 88.8 MCH 28.5 MCHC 32.1 RDW 14.3 Plt Count 249 MPV 9.2 Neut % (Auto) 81.0 Lymph % (Auto) 9.3 [place] % (Auto) 6.5 Eos % (Auto) 2.3 Baso % (Auto) 0.5 Neut # (Auto) 11.27 H Lymph # (Auto) 1.3 [place] # (Auto) 0.9 Eos # (Auto) 0.3 Baso # (Auto) 0.1 Nucleated RBC % (auto) 0 Nucleated RBCs # 0.0 Sodium 140 Potassium 4.1 Chloride 106 Carbon Dioxide 25 Anion Gap 13.1 BUN 22 Creatinine 0.8 GFR Calculation Not Reportable Glucose 123 H Calculated Osmolality 295 Calcium 8.5 Urine Color Urine Appearance Urine pH Ur Specific [place] Urine Protein Urine Glucose (UA) Urine Ketones Urine Blood Urine Nitrate Urine Bilirubin Urine Urobilinogen Ur Leukocyte Esterase Urine RBC Urine WBC Ur Squamous Epith Cells Amorphous Sediment Urine Bacteria Urine Mucus Nasal/Oral COVID-19 PCR SARS-CoV-2 Ag (Rapid) Negative 08/11/20 08/11/20 11:10 Unknown WBC RBC Hgb Hct MCV MCH MCHC RDW Plt Count MPV Neut % (Auto) Lymph % (Auto) [place] % (Auto) Eos % (Auto) Baso % (Auto) Neut # (Auto) Lymph # (Auto) [place] # (Auto) Eos # (Auto) Baso # (Auto) Nucleated RBC % (auto) Nucleated RBCs # Sodium Potassium Chloride Carbon Dioxide Anion Gap BUN Creatinine GFR Calculation Glucose Calculated Osmolality Calcium Urine Color Yellow Urine Appearance Clear Urine pH 5 Ur Specific [place] 1.020 Urine Protein Neg Urine Glucose (UA) Norm Urine Ketones Negative Urine Blood 2+ H Urine Nitrate Negative Urine Bilirubin 1+ H Urine Urobilinogen 1 H Ur Leukocyte Esterase Negative Urine RBC 15-25 H Urine WBC None Ur Squamous Epith Cells 0-4 H Amorphous Sediment Not Reportable Urine Bacteria Trace Urine Mucus Trace Nasal/Oral COVID-19 PCR Not detected SARS-CoV-2 Ag (Rapid) Micro: Microbiology 08/11/20 Unknown Urine Culture - Preliminary Urine,Clean Catch Cardiac Studies: No Data to Display
[2020-08-12] MEDS: vancomycin 1,000 MG in sodium chloride 0.9% 250 ML 250 MG IV (18:46)
[2020-08-12] MEDS: vancomycin 1,000 MG SDV 1000 MG IRRIGATION (19:37)
[2020-08-12] MEDS: vancomycin 1,000 MG SDV 1000 MG XX (19:53)
--- NOTE | 2020-08-12 20:19 | XR_ITS ---
WS: [id number] Pelvis, AP view, 08/12/2020 Clinical Data: Status post bipolar hip arthroplasty Comparison: Pelvis and left hip, 08/10/2020. Findings: The left hip cup arthroplasty is in good position. The proximal femoral kin is in good position. The left superficial femoral and left common iliac artery grafts are seen. There are surgical clips on dinah th sides of the true pelvis. XR/XR pelvis 1-2V* [id number] Impression: Left hip cup arthroplasty in good position.
--- NOTE | 2020-08-12 20:35 | ANE.PACU2 ---
Inpatient post-anesthesia follow up: Airway intact: Yes Vital signs: Temperature 97.6 F Pulse Rate 90 Respiratory Rate 16 Blood Pressure 156/76 Pulse Oximetry 92 Oxygen Delivery Me thod Room Air Oxygen Flow Rate 3.0 Fraction of Inspir ed Oxygen Hydration adequate: Yes Nausea and vomiting: No Pain level: 1 Mental status: Baseline
[2020-08-12] MEDS: morphine 4 mg/mL SDV 1 mL 2 MG IVP ×2 (20:45→20:50)
[2020-08-12] MEDS: acetaminophen 1,000 MG/100 ML PIGGYBACK 400 MG IV (22:12)
[2020-08-12] MEDS: sodium chloride 0.9% 1,000 ML 30 ML IV (22:12)
[2020-08-13] VITALS (11 sets, daily range): BP systolic 124–146; BP diastolic 56–85; PULSE 86–108; RESP 16–18; TEMP 36.3–37.2; O2SAT 90–97
[2020-08-13 02:47] LABS: Basophils # 0.1 10^3/uL (0.0-0.1); Basophils % 0.3 %; Eosinophils # 0.8 10^3/uL (0.0-0.8); Eosinophils % 5.1 %; Hematocrit 33.4 % (42.0-52.0); Hemoglobin 10.7 g/dL (11.7-16.6); Lymphocytes # 1.3 10^3/uL (0.8-4.8); Lymphocytes % 8.4 %; Mean Corpuscular Hemoglobin 28.7 pg (28.0-34.0); Mean Corpuscular Volume 89.5 fL (80-94); Mean Platelet Volume 9.7 fL (7.4-10.4); Monocytes # 1.4 10^3/uL (0.2-0.9); Monocytes % 9.5 %; Neutrophils # 11.59 10^3/uL (1.8-7.7); Neutrophils % 76.3 %; Nucleated Red Blood Cells % 0 %; Platelet Count 238 10^3/cmm (130-400); Red Blood Count 3.73 10^6/uL (4.1-5.3); Red Cell Distribution Width 14.2 % (12.1-15.1); White Blood Count 15.2 10^3/uL (4.0-10.0)
[2020-08-13 03:07] LABS: Anion Gap 12.1 (5-19); Blood Urea Nitrogen 27 mg/dL (8-23); Calcium 7.9 mg/dL (8.5-10.5); Carbon Dioxide 23 mmol/L (22-29); Chloride 108 mmol/L (98-107); Glucose 109 mg/dL (65-115); Osmolality Calculated 294 mOsm/kg (285-295); Potassium 4.1 mmol/L (3.5-5.1); Sodium 139 mmol/L (136-145)
[2020-08-13] MEDS: vancomycin 1,000 MG in sodium chloride 0.9% 250 ML 250 MG IV (03:11)
[2020-08-13] MEDS: acetaminophen 1,000 MG/100 ML PIGGYBACK 400 MG IV ×2 (05:59→12:29)
--- NOTE | 2020-08-13 07:22 | PC.NURSE ---
AM NOTE NOTED PT TO OPEN EYES TO ASSESSMENT BUT DOES NOT SPEAK - MULTIPLE ATTEMPTS TO ASSESS PTS ORIENTATION - DOES NOT SPEAK - WILL MONITOR - BED CHECK SET
[2020-08-13] MEDS: multivitamin therapeutic Tablet 1 TAB PO (08:39)
[2020-08-13] MEDS: pantoprazole DR 40 mg Tablet PO (08:39)
[2020-08-13] MEDS: iron polysaccharide complex 150 mg Capsule PO ×2 (08:39→17:11)
[2020-08-13] MEDS: calcium carbonate 500 mg Chew Tablet 1000 MG PO ×2 (08:39→17:12)
[2020-08-13] MEDS: cholecalciferol (vitamin D3) 1,000 unit Tablet 1000 UNIT PO (08:39)
[2020-08-13] MEDS: aspirin 325 mg EC Tablet PO (08:39)
[2020-08-13] MEDS: sennosides-docusate Tablet 2 TAB PO ×2 (08:39→17:11)
[2020-08-13] MEDS: memantine 5 mg tablet 10 MG PO ×2 (08:39→17:11)
[2020-08-13] MEDS: oxyCODONE 5 mg IR Tab/Cap PO ×2 (08:49→13:39)
[2020-08-13] MEDS: chlorhexidine gluconate 0.12% Btl 473 mL 30 ML MUCOUS MEM ×4 (08:49→20:52)
--- NOTE | 2020-08-13 17:19 | PM.PN ---
Subjective Subjective: Interval history: The patient is doing well. He is seen with his family, and their plan is that he will go to [facility]. Determination of eventual long-term placement will be made once he has completed his acute rehab regarding this fracture. The family is advised that he will be able to completely weight-bear and that he should be able to have aggressive rehabilitation both here in the hospital and at the skilled facility. He will require further treatment at the hospital prior to his discharge per medical service. Medications: Reviewed: Yes Vitals/I&O/Wt Last Vital Signs Temp 98.0 F 08/13/20 15:13 Pulse 94 08/13/20 15:13 Resp 18 08/13/20 15:13 BP 124/56 08/13/20 15:13 Pulse Ox 90 08/13/20 15:13 08/13/20 08/13/20 08/13/20 06:59 14:59 22:59 Intake Total 350 / 2310 120 / 120 100 / 220 Output Total 250 / 900 200 / 200 Balance 100 / 1410 -80 / -80 100 / 20 Physical Exam Const: COMMON NORMALS: no acute distress, average body habitus, patient oriented x3 and alert GENERAL APPEARANCE: cooperative and comfortable ORIENTATION/CONSCIOUSNESS: Yes awake HENMT: COMMON NORMALS: normocephalic and atraumatic HEAD & SCALP: normocephalic and atraumatic Eye: GENERAL EYE: appearance normal, both eyes and all related structures Chest: COMMONS NORMALS: normal inspection of the chest Resp: COMMON NORMALS: normal respiratory effort EFFORT & INSPECTION: Yes able to speak in complete sentences and Yes symmetric chest movement Extremity: LEFT LOWER EXTREMITY: Yes hip joint Left hip: Yes inspection (There is no swelling or erythema about the hip), Yes palpation (Some tenderness to palpation), Yes ROM (Not evaluated secondary to fracture) and Yes neurovascular exam (Intact with no evidence of DVT) Neuro: COMMON NORMALS: patient oriented x3 SENSORIUM/ORIENTATION: Yes alert Psych: COMMON NORMALS: mental status grossly normal APPEARANCE: Yes grossly normal ATTITUDE: Yes calm and Yes engaged ATTENTION/CONCENTRATION: Yes attention grossly intact Skin: COMMON NORMALS: no rashes or lesions noted GENERAL SKIN EXAM: no rashes or lesions noted Urinary Catheter Management^: Han: Cath Placed During This Visit: yes, but has since been removed by the nurse Reason for Continuing Indwelling Catheter: Decision to DC Catheter Urinary Catheter Date of Insertion: 08/11/20 Urinary Catheter Time of Insertion: 02:30 Date Urinary Catheter Removed: 08/13/20 Time Urinary Catheter Discontinued: 05:50 Data : 08/13/20 02:12 08/13/20 02:12 Micro: Microbiology 08/11/20 Unknown Urine Culture - Final Urine,Clean Catch A&P Assessment and plan (1) Fracture of femoral neck, left: The patient underwent a left bipolar hip arthroplasty. He tolerated this well and appears comfortable today. He is working with physical therapy and will require [facility] at the time of discharge. Posterior hip precautions will be necessary, but he will be allowed to be weightbearing as tolerated. Patient will require hospitalization for this treatment and subsequent care following surgical intervention. The family will begin the process of consideration for higher level of care when he returns to outpatient living. Status: Acute Qualifiers: Encounter type: initial encounter Fracture type: closed Qualified Code(s): S72.002A - Fracture of unspecified part of neck of left femur, initial encounter for closed fracture Attestations Medical Necessity Statement*: Postoperative rehabilitation and medical management following hip fracture with bipolar hip arthroplasty. 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
--- NOTE | 2020-08-13 17:45 | PM.PN ---
Subjective Subjective: Interval history: s/p Left bipolar hip arthroplasty last evening, pain is currently well controlled , Hb stable Medications: Reviewed: Yes Vitals/I&O/Wt Last Vital Signs Temp 98.0 F 08/13/20 15:13 Pulse 94 08/13/20 15:13 Resp 18 08/13/20 15:13 BP 124/56 08/13/20 15:13 Pulse Ox 90 08/13/20 15:13 08/13/20 08/13/20 08/13/20 06:59 14:59 22:59 Intake Total 350 / 2310 120 / 120 100 / 220 Output Total 250 / 900 200 / 200 Balance 100 / 1410 -80 / -80 100 / 20 Physical Exam Narrative: EXAM NARRATIVE: GEN: Awake, alert and oriented, no acute distress CVS: S1S2 N RS: CTA B/L Abd: Soft, nt/nd , bs+ JAVA PROJECT MANAGER: no focal neuro deficits Urinary Catheter Management^: Han: Cath Placed During This Visit: yes, but has since been removed by the nurse Reason for Continuing Indwelling Catheter: Decision to DC Catheter Urinary Catheter Date of Insertion: 08/11/20 Urinary Catheter Time of Insertion: 02:30 Date Urinary Catheter Removed: 08/13/20 Time Urinary Catheter Discontinued: 05:50 Data : 08/13/20 02:12 08/13/20 02:12 Micro: Microbiology 08/11/20 Unknown Urine Culture - Final Urine,Clean Catch A&P Assessment and plan (1) Fracture of femoral neck, left: Status: Acute Qualifiers: Encounter type: initial encounter Fracture type: closed Qualified Code(s): S72.002A - Fracture of unspecified part of neck of left femur, initial encounter for closed fracture Additional A&P Information Subcapital left femoral neck fractures/p ORIF 08/12, tolerated procedure well Pain currently well controlled Patient is attributing his fall to losing balance and being too sleepy, no active chest pain or seizure-like activity, Peripheral vascular disease Plavix on hold secondary to nosebleed and upcoming surgery, continue atorvastatin Recent recurrent nosebleed, obtain records from outpatient ENT. Dementia: Continue memantine and donepezil COPD without acute exacerbation Saturating well on 2 L nasal cannula code status: DNR DNI regular diet dvt ppx: SCD Attestations Medical Necessity Statement*: s/p ORIF, awaiting transfer to SNF to continue skilled care Coding Level of Care Code Acute Commissions Analyst for [facility] Fwd Diagnoses Fracture of femoral neck, left S72.002A Encounter type: initial encounter Fracture type: closed
[2020-08-13] MEDS: fluticasone nasal spray 16gm Btl 1 SPRAY INTRANASAL (18:03)
[2020-08-13 20:24] LABS: Glucose Point of Care 157 mg/dL (70-110)
[2020-08-13] MEDS: donepezil 5 MG Tablet PO (20:52)
[2020-08-13] MEDS: atorvastatin 40 mg Tablet 80 MG PO (20:52)
[2020-08-13] MEDS: acetaminophen 500 mg Tablet 1000 MG PO (22:47)
[2020-08-14] VITALS (7 sets, daily range): BP systolic 132–156; BP diastolic 55–65; PULSE 81–99; RESP 17–18; TEMP 36.3–37.2; O2SAT 90–92
[2020-08-14 03:03] LABS: Basophils # 0.1 10^3/uL (0.0-0.1); Basophils % 0.5 %; Eosinophils # 0.9 10^3/uL (0.0-0.8); Eosinophils % 6.7 %; Hematocrit 27.3 % (42.0-52.0); Hemoglobin 9.1 g/dL (11.7-16.6); Lymphocytes # 1.4 10^3/uL (0.8-4.8); Lymphocytes % 10.5 %; Mean Corpuscular HGB Conc 33.3 g/dL (30.0-36.0); Mean Corpuscular Hemoglobin 28.7 pg (28.0-34.0); Mean Corpuscular Volume 86.1 fL (80-94); Mean Platelet Volume 9.9 fL (7.4-10.4); Monocytes # 1.2 10^3/uL (0.2-0.9); Monocytes % 9.3 %; Neutrophils # 9.56 10^3/uL (1.8-7.7); Nucleated Red Blood Cells % 0 %; Platelet Count 246 10^3/cmm (130-400); Red Blood Count 3.17 10^6/uL (4.1-5.3); Red Cell Distribution Width 14.1 % (12.1-15.1); White Blood Count 13.3 10^3/uL (4.0-10.0)
[2020-08-14] MEDS: acetaminophen 500 mg Tablet 1000 MG PO (06:41)
[2020-08-14] MEDS: oxyCODONE 5 mg IR Tab/Cap PO (08:49)
[2020-08-14] MEDS: memantine 5 mg tablet 10 MG PO (08:50)
[2020-08-14] MEDS: cholecalciferol (vitamin D3) 1,000 unit Tablet 1000 UNIT PO (08:50)
[2020-08-14] MEDS: calcium carbonate 500 mg Chew Tablet 1000 MG PO (08:50)
[2020-08-14] MEDS: sennosides-docusate Tablet 2 TAB PO (08:50)
[2020-08-14] MEDS: polyethylene glycol 3350 Pkt 17 gm PO (08:50)
[2020-08-14] MEDS: iron polysaccharide complex 150 mg Capsule PO (08:50)
[2020-08-14] MEDS: aspirin 325 mg EC Tablet PO (08:50)
[2020-08-14] MEDS: pantoprazole DR 40 mg Tablet PO (08:50)
[2020-08-14] MEDS: multivitamin therapeutic Tablet 1 TAB PO (08:50)
[2020-08-14] MEDS: chlorhexidine gluconate 0.12% Btl 473 mL 30 ML MUCOUS MEM (08:51)
--- NOTE | 2020-08-14 11:04 | PC.SOCIAL ---
IMM Update PG. 2 of IMM updated and reviewed with patient who verbalized understanding. Copy provided.
--- NOTE | 2020-08-14 11:19 | PC.OT ---
OT note: Attempted this morning but pt was nauseated. Let nurse know. Will attempt later as able.
--- NOTE | 2020-08-14 11:24 | PM.DCS ---
Discharge Providers Date of Admission: 08/11/20 00:45 Date of Discharge: August 14, 2020 Attending Provider at Admission: Emilia Lizarraga MD Attending Provider at Discharge: Kathy Pulido MD Primary Care Provider: Sea Baxter Diagnoses at Discharge Discharge Diagnosis (1) Fracture of femoral neck, left: Status: Acute Qualifiers: Encounter type: initial encounter Fracture type: closed Qualified Code(s): S72.002A - Fracture of unspecified part of neck of left femur, initial encounter for closed fracture Reason for Visit Reason for Visit: HIP FX,TXFR MERCY/MTN VIEW Hospital Course Hospital Course Modesto Calixto is a 85 year old male who has history of dementia, peripheral vascular disease, lung cancer, prostate and kidney cancer presented from [facility] living after sustaining a fall. Patient is stating that he was asleep, he rolled over and fell from his bed on his left side. He was evaluated at [place] [facility], CBC and BMP unremarkable other than creatinine 1.1, imaging revealed impacted left subcapital neck fracture of femur, chest x-ray showing chronic COPD changes. He underwent Left bipolar hip arthroplasty on 08/12/20, tolerated procedure well, pain is well controlled. Discharged today in stable condition. Has a history of COPD, no current exacerbation during hospital course. Upon presentation patient reportedly had a nasal packing in place, however in spite of multiple attempts, this packing could not be found, suspect that may have fallen off in transit. Encouraged to follow up with ENT as an outpatient. No active nose bleed during admission. Physical Exam Narrative: EXAM NARRATIVE: GEN: Awake, alert and oriented, no acute distress CVS: S1S2 N RS: CTA B/L Abd: Soft, nt/nd , bs+ PROGRAMMER: no focal neuro deficits Urinary Catheter Management^: Han: Cath Placed During This Visit: yes, but has since been removed by the nurse Reason for Continuing Indwelling Catheter: Decision to DC Catheter Urinary Catheter Date of Insertion: 08/11/20 Urinary Catheter Time of Insertion: 02:30 Date Urinary Catheter Removed: 08/13/20 Time Urinary Catheter Discontinued: 05:50 Discharge Data Data Completed and Pending: Completed Studies During Hospitalization Category Date Time Status CT hip LT wo con* [id number] Routine Cat Scan 08/11/20 09:06 Completed XR pelvis 1-2V* 7 2170 Routine Exams 08/12/20 20:19 Completed Pending at discharge Category Date Time Status Complete Blood Co unt w/Auto AM LABS Lab 08/15/20 04:00 Ordered Pathology: Surgic al [PTH] Routine Pth 08/12/20 20:02 Received Labs from last 24 hours 08/14/20 08/13/20 02:35 20:18 WBC 13.3 H RBC 3.17 L Hgb 9.1 L Hct 27.3 L MCV 86.1 MCH 28.7 MCHC 33.3 RDW 14.1 Plt Count 246 MPV 9.9 Neut % (Auto) 72.0 Lymph % (Auto) 10.5 [place] % (Auto) 9.3 Eos % (Auto) 6.7 Baso % (Auto) 0.5 Neut # (Auto) 9.56 H Lymph # (Auto) 1.4 [place] # (Auto) 1.2 H Eos # (Auto) 0.9 H Baso # (Auto) 0.1 Nucleated RBC % (a uto) 0 Nucleated RBCs # 0.0 POC Glucose 157 H Vitals: Last Vital Signs Temp 98.9 F 08/14/20 11:19 Pulse 86 08/14/20 11:19 Resp 18 08/14/20 11:19 BP 132/65 08/14/20 11:19 Pulse Ox 90 08/14/20 11:19 Discharge Plan Discharge Patient Disposition: Home Condition: Stable Prescriptions: New tramadol 50 mg Tablet 50 mg PO Q8H PRN (Reason: Mild To Moderate Pain) 7 Days Qty: 21 RF: 0 Continued ferrous sulfate 325 mg (65 mg iron) tablet 325 mg PO .every other day RF: 0 clopidogrel 75 mg tablet 75 mg PO DAILY@19 RF: 0 sertraline 50 mg tablet 50 mg PO DAILY@06 RF: 0 pantoprazole 40 mg tablet,delayed release (DR/EC) 40 mg PO DAILY@06 RF: 0 rosuvastatin 20 mg tablet 20 mg PO DAILY@20 RF: 0 gabapentin 400 mg capsule 400 mg PO TID@06,12,19 RF: 0 donepezil 10 mg tablet 5 mg PO BEDTIME@20 RF: 0 tramadol 50 mg Tablet 50 mg PO Q8H PRN (Reason: Pain) RF: 0 aspirin [Adult Aspirin Regimen] 81 mg tablet,delayed release (DR/EC) 81 mg PO DAILY Qty: 30 RF: 0 doxycycline hyclate 100 mg Capsule 100 mg PO BID@, RF: 0 fluticasone propionate 50 mcg/actuation [place],Suspension 1 spray INTRANASAL DAILY@19 RF: 0 cholecalciferol (vitamin D3) 1,250 mcg (50,000 unit) Capsule 50,000 unit PO Q7D RF: 0 TwoCal HN 0.08-2 gram-kcal/mL Liquid 1 ea PO TID@,, RF: 0 bisacodyl 10 mg Suppository 10 mg [place] DAILY PRN (Reason: Constipation) RF: 0 ipratropium bromide 0.03 % [place],Non-Aerosol 2 spray INTRANASAL DAILY PRN (Reason: UNKNOWN) RF: 0 lactulose 10 gram/15 mL Solution 45 ml PO BID PRN (Reason: Constipation) RF: 0 polyethylene glycol 3350 17 gram Powder In Packet 17 g PO DAILY PRN (Reason: Constipation) RF: 0 magnesium hydroxide [Milk of Magnesia] 400 mg/5 mL Suspension 30 ml PO DAILY PRN (Reason: CONSTIPATION) RF: 0 mirtazapine [Remeron] 15 mg Tablet 15 mg PO DAILY@19 RF: 0 acetaminophen 500 mg Capsule 1,000 mg PO Q6H PRN (Reason: Pain) RF: 0 memantine [Namenda] 10 mg Tablet 10 mg PO BID@ RF: 0 Breo Ellipta 100-25 mcg/dose Blister With Device 1 inh INHALATION DAILY@06 RF: 0 Discharge Orders: Discharge Order (Routine); Ordered 08/14/20 Ordered By: Kathy Pulido Referrals: Sea Baxter [Primary Care Provider] - 08/18/20 10:20 am Patient Instructions: Tramadol (By mouth), Open Reduction and Internal Fixation of a Leg Fracture (DC), Opioid Safety Discharge Attestations Time Spent in Discharge Care*: less than 30 min Quality Metrics Clinical Quality Measures During this hospital stay, did patient experience: None Coding Level of Care Code Acute Chg FW DC note Diagnoses Fracture of femoral neck, left S72.002A Encounter type: initial encounter Fracture type: closed
--- NOTE | 2020-08-14 15:43 | PM.PN ---
Subjective Subjective: Interval history: s/p Left bipolar hip arthroplasty last evening, pain is currently well controlled. Hemoglobin is stable. He is somewhat confused today. Medications: Reviewed: Yes Vitals/I&O/Wt Last Vital Signs Temp 98.9 F 08/14/20 13:33 Pulse 86 08/14/20 13:33 Resp 18 08/14/20 13:33 BP 132/65 08/14/20 13:33 Pulse Ox 90 08/14/20 13:33 08/14/20 08/14/20 08/14/20 06:59 14:59 22:59 Intake Total 120 / 120 Output Total 0 / 200 Balance 0 1938 120 / 120 Physical Exam Const: COMMON NORMALS: no acute distress, average body habitus, patient oriented x3 and alert GENERAL APPEARANCE: cooperative and comfortable ORIENTATION/CONSCIOUSNESS: Yes awake HENMT: COMMON NORMALS: normocephalic and atraumatic HEAD & SCALP: normocephalic and atraumatic Eye: GENERAL EYE: appearance normal, both eyes and all related structures Chest: COMMONS NORMALS: normal inspection of the chest Resp: COMMON NORMALS: normal respiratory effort EFFORT & INSPECTION: Yes able to speak in complete sentences and Yes symmetric chest movement Extremity: LEFT LOWER EXTREMITY: Yes hip joint (There is no erythema or swelling about the hip) Left hip: Yes inspection (Dressings are dry and intact), Yes palpation (Minimal discomfort), Yes ROM (Not evaluated) and Yes neurovascular exam (Intact) Neuro: COMMON NORMALS: patient oriented x3 SENSORIUM/ORIENTATION: Yes alert Psych: COMMON NORMALS: mental status grossly normal APPEARANCE: Yes grossly normal ATTITUDE: Yes calm and Yes engaged ATTENTION/CONCENTRATION: Yes attention grossly intact Skin: COMMON NORMALS: no rashes or lesions noted GENERAL SKIN EXAM: no rashes or lesions noted Urinary Catheter Management^: Han: Cath Placed During This Visit: yes, but has since been removed by the nurse Reason for Continuing Indwelling Catheter: Decision to DC Catheter Urinary Catheter Date of Insertion: 08/11/20 Urinary Catheter Time of Insertion: 02:30 Date Urinary Catheter Removed: 08/13/20 Time Urinary Catheter Discontinued: 05:50 Data : 08/14/20 02:35 08/13/20 02:12 A&P Assessment and plan (1) Fracture of femoral neck, left: The patient underwent a left bipolar hip arthroplasty. He tolerated this well and appears comfortable today. He is working with physical therapy and will require group home at the time of discharge. Posterior hip precautions will be necessary, but he will be allowed to be weightbearing as tolerated. The patient is ready for discharge today. He was in assisted living, but he will be in a higher level of care upon his return to the same facility. He will require group home. Status: Acute Qualifiers: Encounter type: initial encounter Fracture type: closed Qualified Code(s): S72.002A - Fracture of unspecified part of neck of left femur, initial encounter for closed fracture Attestations Medical Necessity Statement*: Per hospitalist team. Coding Level of Care Code Acute Supervisor [employer] [facility] Diagnoses Fracture of femoral neck, left S72.002A Encounter type: initial encounter Fracture type: closed
== END 2020-08-14 16:00 | disposition skilled nursing facility (03) | DRG 522 ==
PROVIDERS: Specialist; Admitting Provider Internal Medicine; PCP Family Medicine; Visit Provider Student in an Organized Health Care Education/Training Program
PROC: 0SRS0JZ Replacement of Left Hip Joint, Femoral Surface with Synthetic Substitute, Open Approach (ICD-10-PCS; CPT 27125; principal; 2020-08-12 16:05)
DX: S72.012A Unspecified intracapsular fracture of left femur, initial encounter for closed fracture (principal); W06.XXXA Fall from bed, initial encounter; Z66 Do not resuscitate; F03.90 Unspecified dementia, unspecified severity, without behavioral disturbance, psychotic disturbance, mood disturbance, and anxiety; I73.9 Peripheral vascular disease, unspecified; Z95.820 Peripheral vascular angioplasty status with implants and grafts; Z85.46 Personal history of malignant neoplasm of prostate; Z85.528 Personal history of other malignant neoplasm of kidney; Z85.118 Personal history of other malignant neoplasm of bronchus and lung; D64.9 Anemia, unspecified; I25.10 Atherosclerotic heart disease of native coronary artery without angina pectoris; F17.210 Nicotine dependence, cigarettes, uncomplicated; J44.9 Chronic obstructive pulmonary disease, unspecified; Z79.02 Long term (current) use of antithrombotics/antiplatelets; Z79.82 Long term (current) use of aspirin
CPT/HCPCS: 36415; 36416; 51702; 72170; 73700; 80048; 81001; 82962; 85025; 87086; 87426; 87635; 88305; 97161; 97166; 97530; C1776; J0696; J2270; J2370; J2405; J2704; J3370; J7030; J7050; J7799